=== PATIENT | female | born 1935 | race Caucasian/White ===

== ENCOUNTER 2020-02-06 16:09 | Emergency (ER) | payer OTHER, MEDICAID, SELFPAY ==
[2020-02-06 17:02] VITALS: BP 115/69; PULSE 87; RESP 16; TEMP 36.1; O2SAT 97; BMI 32.3
--- NOTE | 2020-02-06 21:47 | ED.BACK ---
HPI - Back Pain/Injury General Chief Complaint: Back Pain/Injury Stated Complaint: BACK PAIN Time Seen by Provider: 02/06/20 22:58 Source: patient, family (Daughter) and RN notes reviewed Mode of arrival: wheelchair Limitations: no limitations History of Present Illness HPI Narrative: Patient presents to ED for chronic back pain exacerbation. Patient states back pain for 4 days. Patient denies any recent trauma. Patient states no urinary or bowel incontinence. Patient states no fever or chills. MD elicited complaint: back pain Related Data Previous Rx's Medication Instructions Recorded oxycodone-acetaminophen [Percocet] 1 tab PO TID PRN #9 tab 02/07/20 Allergies Allergy/AdvReac Type Severity Reaction Status Date / Time No Known Allergies Allergy Unverified 10/26/19 19:11 [No Known Allergies*] Review of Systems Review of Systems: Back pain Yes all other systems are reviewed and are negative Constitutional: Constitutional: Reports as per HPI and Reports no additional constitutional complaints Eyes: Eyes: Reports as per HPI and Reports no additional eye complaints ENT: Reports system reviewed and no additional complaints, except as documented and Reports as per HPI Cardiovascular: Cardiovascular: Reports as per HPI and Reports no additional cardiovascular complaints Respiratory: Respiratory: Reports as per HPI and Reports no additional respiratory complaints Gastrointestinal: Gastrointestinal: Reports as per HPI and Reports no additional gastrointestinal complaints Genitourinary: Genitourinary: Reports no additional female genitourinary complaints and Reports as per HPI Musculoskeletal: Musculoskeletal: Reports no additional musculoskeletal complaints and Reports as per HPI Comments: Back pain Neurologic: Reports system reviewed and no additional complaints, except as documented and Reports as per HPI Psychiatric: Psychiatric: Reports no additional psychiatric complaints and Reports as per HPI [facility] Past Medical History Medical History (Updated 02/07/20 @ 02:44 by SANJEEV Hanna) Arthritis Dementia Hypertension Osteoporosis Social History Social History Alcohol intake: never Smoking Status: Never smoker Use of substances other than those prescribed or required for medical reasons: No Advance Directives: No Advance Directives Information Provided: Yes Physical Exam Vital Signs: Vital Signs: Last Vital Signs Temp 97.7 F 02/07/20 01:26 Pulse 72 02/07/20 01:26 Resp 16 02/07/20 01:26 BP 147/73 H 02/07/20 01:26 Pulse Ox 95 02/07/20 01:26 Body Mass Index 32.3 Const: General: cooperative, healthy appearing, comfortable, no acute distress, well developed, alert, awake and acute distress Orientation/consciousness: patient oriented x3 HENMT: Head: Yes normal to inspection and Yes No palpable skull fracture present Eyes: General: appearance normal, both eyes and all related structures Neck: Neck: Yes normal visual inspection and Yes full ROM Chest: Chest palpation & inspection: normal inspection of the chest and normal palpation of entire chest wall Resp: Effort & Inspection: normal respiratory effort, able to speak in complete sentences and uses accessory muscles Cardio: Jugular venous distension: no JVD Heart sounds: S1 normal heart sound present and S2 normal heart sound present GI: Inspection: Yes normal to inspection and No abdominal wall ecchymosis Palpation (GI): Soft to palpation, not firm, nontender, no guarding and not rigid : General: Yes no CVA tenderness Back/Spine/Pelvis: Back: no CVA tenderness and back tenderness (Positive for thoracic and lumbar spine tenderness on palpation) Skin: General skin exam: no rashes or lesions noted and elasticity normal Neuro: General: patient oriented x3, gait normal and CN's II-XI intact bilaterally Cranial nerves: Yes CN's II-XII intact bilaterally Extrem: General: Yes normal to inspection and Yes full ROM Psych: Appearance: grossly normal, well kempt and not disheveled Course Course Course Narrative: Patient will be given pain medication and imaging imaging done. Daughter states at baseline patient has dementia, is hard of hearing, and has low cognitive abilities. Reevaluation(s) Reevaluation #1: CT scan shows arthritic changes. Patient's pain did not improve after receiving oxycodone ,Toradol, Flexeril. Patient most likely will be a case management and physical therapy in the morning. Patient waiting for urinalysis. Time: 02:13 Reevaluation #2: Rectal exam was done and patient has good muscle tone. Patient able to move her lower extremities. But patient still in pain and not able to get up and walk. not suspecting chord compression Plan is for Case Management and physical exam to be done in the morning with physical therapy. Daughter was informed of this. Daughter name is amarilis Alston. Daughter states she does not want her mother to go to short-term rehab or be evaluated by Case Management or PT. through setup operator, daughter was informed if she takes patient it would be against medical advice and she accepted the risk of taking patient home. Daughter states patient usually walks at home, she was informed patient to be evaluated by physical therapy is necessary. She still refused patient to stay in the hospital for case management and physical therapy. Discharge papers being prepared. Amarilis Alston will come and pick up and delivery driver patient Time: 02:41 MDM - Back Pain/Injury MDM Narrative Medical decision making narrative: Chronic back pain exacerbation Lab Data Result diagrams: 02/07/20 00:48 02/07/20 00:48 Labs: Lab Results 02/07/20 02/07/20 02/07/20 Range/Units 00:48 00:48 02:05 WBC 5.3 (4.8-10.8) X10*3/uL RBC 4.43 (4.20-5.50) X10*6/uL Hgb 13.6 (12.0-16.0) g/dl Hct 39.9 (37-47) % MCV 90.1 (80-98) fL MCH 30.7 (27.0-33.0) pg MCHC 34.1 (31.0-35.0) g/dl RDW 12.2 (11.0-16.0) % Plt Count 337 (160-400) X10*3/uL MPV 10.2 (9.4-12.3) fL Immature Gran % (Auto) 0.4 (0.0-0.4) % Neut % (Auto) 68.6 (45-73) % Lymph % (Auto) 20.6 (20-40) % [place] % (Auto) 9.4 (2-11) % Eos % (Auto) 0.6 (0-4) % Baso % (Auto) 0.4 (0-2) % Lymph # (Auto) 1.1 L (1.2-4.9) X10*3/uL [place] # (Auto) 0.5 (0.1-1.2) X10*3/uL Eos # (Auto) 0.0 (0.0-0.4) X10*3/uL Baso # (Auto) 0.0 (0.0-0.2) X10*3/uL Abs Immat Gran (auto) 0.02 (0.00-0.03) X10*3/uL Absolute Neuts (auto) 3.7 (2.0-8.3) X10*3/uL Absolute Nucleated RBC 0.000 (0.0-0.012) X10*3/uL Nucleated RBC % (auto) 0.0 (0.0-0.2) /100WBC Sodium 140 (135-145) mmol/L Potassium 4.3 (3.3-5.1) mmol/l Chloride 101 (96-108) mmol/L Carbon Dioxide 27 (22-29) mmol/L Anion Gap 16 (12-20) BUN 16 (9-16) mg/dL Creatinine 1.25 (0.5-1.4) mg/dL Estim Creat Clear Calc 29.6 Estimated GFR 41 Random Glucose 105 (60-115) mg/dL Calcium 9.7 (8.4-10.2) mg/dL Total Bilirubin 0.7 (0.0-1.0) mg/dL Direct Bilirubin 0.3 (0.0-0.5) mg/dL AST 21 (5-31) U/L ALT 11 (0-31) U/L Alkaline Phosphatase 144 H (39-117) U/L Total Protein 8.2 H (6.5-8.0) g/dL Albumin 4.2 (3.5-5.0) g/dL Urine Color YELLOW Urine Appearance HAZY Urine pH 5.5 (5.0-8.0) Ur Specific [place] >= 1.030 H (1.005-1.025) Urine Protein 1+ H (NEG-TRACE) MG/DL Urine Glucose (UA) NEG (NEG) MG/DL Urine Ketones NEG (NEG) MG/DL Urine Blood NEG (NEG) Urine Nitrite NEG (NEG) Ur Leukocyte Esterase NEG (NEG) Discharge Plan Discharge Clinical Impression: Lumbar radiculopathy Patient Disposition: Left Against Medical Advice Instructions: Lumbar Radiculopathy (ED) Additional Instructions: Please bring patient back to the ED immediately for urinary/bowel incontinence, inability to move lower extremities, fever, chills, or any other concerning symptoms. Please follow-up with PCP. Chronic back pain exacerbation Prescriptions: New oxycodone-acetaminophen [Percocet] 5-325 mg tablet 1 tab PO TID PRN (Reason: pain) Qty: 9 RF: 0 Stand Alone Forms: Against Medical Advice Print Language: Welsh
[2020-02-06 21:54] VITALS: BP 156/78; PULSE 70; RESP 18; O2SAT 96
[2020-02-06] MEDS: Ketorolac Tromethamine 30 MG/ML VIAL IM (22:34)
[2020-02-06 22:50] VITALS: BP 163/75; PULSE 74; RESP 18; TEMP 36.6; O2SAT 95
[2020-02-06] MEDS: Cyclobenzaprine HCl 10 MG TABLET PO (23:15)
[2020-02-06 23:28] VITALS: BP 143/70; PULSE 72; RESP 18; TEMP 36.7; O2SAT 96
--- NOTE | 2020-02-07 | CT_ITS ---
EXAMINATION: CT ABDOMEN AND PELVIS WITHOUT CONTRAST CLINICAL INFORMATION: Back pain. Question arthritis. Question kidney stones. COMPARISON: CT from 12/02/2017. TECHNIQUE: Multidetector volumetric imaging was performed from the superior aspect of the liver through the pubic symphysis. Sagittal and coronal reformatted images were obtained on the technologist's workstation. This CT examination was performed using dose optimization techniques as appropriate, variously including the following: *Automated exposure control *Adjustment of mA and/or kV according to patient size (this includes techniques or standardized protocols for targeted exams where dose is matched to indication/reason for exam; i.e. extremities or head) *Use of iterative reconstruction technique DLP: 710 mGy-cm FINDINGS: LUNG BASES: Basilar pleural thickening and atelectasis. The heart is enlarged. LIVER, GALLBLADDER, AND BILIARY TREE: The liver is normal in size, shape, and attenuation. No focal hepatic lesion or intrahepatic biliary ductal dilatation is present. Cholecystectomy. Persistent dilatation of the common bile duct. No ductal filling defects seen. PANCREAS: Unremarkable. SPLEEN: Unremarkable. ADRENAL GLANDS: Unremarkable. KIDNEYS AND URETERS: The kidneys are normal in size, shape, and attenuation. No hydronephrosis, hydroureter, or calculi seen. No perinephric stranding. Right midpole renal cyst is unchanged. BLADDER: Normally distended with circumferential wall thickening. This is similar to prior. GASTROINTESTINAL TRACT: The stomach is unremarkable. The small bowel is normal in caliber. There is no obstruction. Partial colectomy.There is a left lower quadrant colostomy. 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 This is not obstructing. No free air or free fluid. ABDOMINAL WALL: Left lower quadrant colostomy with prominent parastomal hernia. This is unchanged. LYMPH NODES: Normal. VASCULAR: Normal caliber aorta with mild atherosclerotic calcification. PELVIC VISCERA: The uterus and adnexa are unremarkable. OSSEOUS STRUCTURES: No acute or suspicious osseous abnormality. Osteopenia. Degenerative changes throughout the spine. Chronic L5 vertebral body height loss. Prominent Schmorl's node at the inferior endplate of L1. Multilevel facet arthropathy. Degenerative changes of both hips. CT/CT abdomen pelvis wo con IMPRESSION: No acute finding in the abdomen or pelvis. No hydronephrosis or nephrolithiasis. Osteopenia. Chronic changes of the spine with prominent Schmorl's nodes. No acute abnormality of the spine. Multilevel facet arthropathy. 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 Chronic bladder wall thickening.
[2020-02-07] MEDS: oxyCODONE HCl Immed Release 5 MG TABLET PO (00:39)
[2020-02-07 00:55] LABS: MANUAL DIFF FLAG NO
[2020-02-07 00:56] LABS: Basophils Percent Auto 0.4 % (0-2); Eosinophils Percent Auto 0.6 % (0-4); Hematocrit 39.9 % (37-47); Hemoglobin 13.6 g/dl (12.0-16.0); Imm Gran Abs Auto 0.02 X10*3/uL (0.00-0.03); Imm Gran Pct Auto 0.4 % (0.0-0.4); Lymphocytes Absolute Auto 1.1 X10*3/uL (1.2-4.9); Lymphocytes Percent Auto 20.6 % (20-40); Mean Corpuscular HGB Conc 34.1 g/dl (31.0-35.0); Mean Corpuscular Hemoglobin 30.7 pg (27.0-33.0); Mean Corpuscular Volume 90.1 fL (80-98); Mean Platelet Volume 10.2 fL (9.4-12.3); Monocytes Absolute Auto 0.5 X10*3/uL (0.1-1.2); Monocytes Percent Auto 9.4 % (2-11); Neutrophils Absolute Auto 3.7 X10*3/uL (2.0-8.3); Neutrophils Percent Auto 68.6 % (45-73); Platelet Count 337 X10*3/uL (160-400); Red Blood Count 4.43 X10*6/uL (4.20-5.50); Red Cell Distribution Width 12.2 % (11.0-16.0); White Blood Count 5.3 X10*3/uL (4.8-10.8)
[2020-02-07 01:23] LABS: Alanine Aminotransferase 11 U/L (0-31); Albumin Level 4.2 g/dL (3.5-5.0); Alkaline Phosphatase 144 U/L (39-117); Anion Gap 16 (12-20); Aspartate Amino Transferase 21 U/L (5-31); Bilirubin Direct 0.3 mg/dL (0.0-0.5); Bilirubin Total 0.7 mg/dL (0.0-1.0); Blood Urea Nitrogen 16 mg/dL (9-16); Calcium 9.7 mg/dL (8.4-10.2); Carbon Dioxide 27 mmol/L (22-29); Chloride 101 mmol/L (96-108); Creatinine Clr Calc Pharmacy 29.6; Estimated Glomerular Filt Rate 41; Glucose Random 105 mg/dL (60-115); Potassium 4.3 mmol/l (3.3-5.1); Sodium 140 mmol/L (135-145); Total Protein 8.2 g/dL (6.5-8.0)
[2020-02-07 01:26] VITALS: BP 147/73; PULSE 72; RESP 16; TEMP 36.5; O2SAT 95
[2020-02-07 02:21] LABS: Glucose Urine UA NEG (NEG); Leukocyte Esterase Urine NEG (NEG); Nitrite Urine NEG (NEG); PH 5.5 (5.0-8.0); Specific Gravity - Urine >= 1.030 (1.005-1.025); Urine Blood NEG (NEG); Urine Ketones NEG (NEG); Urine Protein 1+ MG/DL (NEG-TRACE)
[2020-02-07 02:25] LABS: Appearance Urine HAZY; Color Urine YELLOW
[2020-02-07 03:29] LABS: RBC Urine 0 /HPF (0); Renal Epithelial Cells Urine 3+ /LPF; Squamous Epithelial Cell Urine TRACE /LPF; WBC Urine 0-2 /HPF (0-4)
[2020-02-07 03:30] LABS: Amorphous Sediment Urine 3+ /LPF; Uric Acid Crystals Urine TRACE /LPF
== END 2020-02-07 03:34 | disposition left against medical advice (07) ==
PROVIDERS: Physician Assistant; Emergency Provider Emergency Medicine; PCP Internal Medicine
DX: M54.16 Radiculopathy, lumbar region (principal); R10.9 Unspecified abdominal pain; I10 Essential (primary) hypertension; Z79.899 Other long term (current) drug therapy
CPT/HCPCS: 36415; 74176; 80053; 80076; 81001; 82248; 85025; 96372; 99284; J1885

== ENCOUNTER 2021-02-01 23:10 | Inpatient (IN) | payer OTHER, MEDICAID, SELFPAY ==
--- NOTE | ~2021-02-01 | XR_ITS ---
EXAMINATION: XR CHEST CLINICAL INFORMATION: Covid positive COMPARISON: 05/31/2018 TECHNIQUE: Frontal view of the chest was obtained. FINDINGS: The lungs are well expanded. Patchy opacities are seen in both mid to lower lungs. No effusion. No pneumothorax. The cardiomediastinal silhouette is unchanged, with a calcified aorta. Degenerative changes of the shoulders. Intra-articular body at the right inferior glenohumeral recess. XR/XR chest 1V IMPRESSION: Patchy opacities of both mid to lower lungs can be seen in the setting of Covid.
--- NOTE | ~2021-02-01 | XR_ITS ---
EXAMINATION: XR CHEST CLINICAL INFORMATION: Hypoxia COMPARISON: Chest radiographs 02/02/2021, 05/31/2018; CT abdomen 02/07/2020. TECHNIQUE: Portable upright AP view of the chest was obtained. FINDINGS: Patient is obliqued to the right. There is patchy bilateral lower zone airspace opacities, increased from 02/02/2021. The vascularity appears normal. There is no pneumothorax. No overt effusion. Bony structures are similar to prior study. XR/XR chest 1V IMPRESSION: Patchy bilateral lower zone airspace opacities increased from prior study 02/02/2021.
--- NOTE | 2021-02-01 23:47 | ED.AMS ---
HPI - Altered Mental Status General Chief Complaint: Altered Mental Status Stated Complaint: ams/ftt Time Seen by Provider: 02/01/21 23:47 Source: EMS Limitations: altered mental status History of Present Illness HPI narrative: patient history of dementia, type 2 diabetes, hypertension, coronary disease, colon cancer, andree stomal hernia came here for decreased oral intake and feeling weak and more confused for last 2 days. No fever no chills no cough other family members sick with a cold symptoms but no family member diagnosed with COVID, patient not vaccinated against COVID no fever no cough no vomiting or diarrhea patient had a colostomy bag for colon cancer patient demented but able to ambulate and eat today patient did not eat much patient is saturating 89% at room air on arrival Related Data Home Medications Medication Instructions Recorded Confirmed acetaminophen 650 mg 2 tab PO Q12H PRN 02/02/21 02/02/21 tablet,extended release (Pain Relief (acetaminophen)) amlodipine 5 mg tablet 1 tab PO DAILY 02/02/21 02/02/21 quetiapine 25 mg tablet 1 tab PO BEDTIME 02/02/21 02/02/21 Allergies Allergy/AdvReac Type Severity Reaction Status Date / Time No Known Allergies Allergy Verified 02/02/21 00:12 [No Known Allergies*] Review of Systems Review of Systems: Yes all other systems are reviewed and are negative PMFSH Past Medical History Medical History (Updated 02/02/21 @ 05:04 by Chidi Roche MD) Arthritis Dementia Hypertension Osteoporosis S/p nephrectomy Surgical History (Updated 02/02/21 @ 00:07 by Chidi Roche MD) S/P cholecystectomy S/P colon resection Social History Social History Alcohol intake: never Use of substances other than those prescribed or required for medical reasons: No Advance Directives: No Advance Directives Information Provided: Yes Physical Exam Vital Signs: Vital Signs: Last Vital Signs Temp 98.6 F 02/02/21 03:23 Pulse 76 02/02/21 03:23 Resp 22 H 02/02/21 03:23 BP 108/58 L 02/02/21 03:23 Pulse Ox 98 02/02/21 03:23 Oxygen Flow Rate 2 02/01/21 23:52 BMI result Body Mass Index 29.2 Appearance: Alert. Oriented X1. No acute distress. Eyes: PERRL. mild pallor ENT: Pharynx normal. Oral Mucosa moist Neck: Normal inspection. Neck supple. CVS: Normal heart rate and rhythm. Pulses normal. Respiratory: No respiratory distress. Equal air entry bilateral, no wheezing/rales/rhonchi Abdomen: Soft and nontender. colostomy bag in place Bowel sounds are present, no mass palpable, Skin: Skin warm and dry. Normal skin color. Normal skin turgor. Extremities: No lower extremity edema. No calf tenderness Neuro: Oriented X 3. No motor deficit. MDM - Altered Mental Status MDM Narrative Medical decision making narrative: patient COVID-19 positive 89% at room air when she came labs showed significant dehydration with sodium of 155 creatinine of 1.72 will admit patient for IV hydration. Chest x-ray showed significant infiltrates bilaterally will start on IV antibiotic prophylactically per hospitalist patient has elevated lactic acid 2.4 a procalcitonin 5.91 suggestive of possible bacterial infection with dehydration patient is slightly elevated high sensitive troponin 62 no acute ischemic EKG changes no chest pain will follow hospitalist aware Lab Data Attestation: I reviewed the patient's lab results. Result diagrams: 02/02/21 04:27 02/02/21 04:27 Labs: Lab Results 02/01/21 02/02/21 02/02/21 Range/Units 23:53 00:18 00:24 WBC 13.8 H (4.8-10.8) X10*3/uL RBC 4.85 (4.20-5.50) X10*6/uL Hgb 14.6 (12.0-16.0) g/dl Hct 44.1 (37.0-47.0) % MCV 90.9 (80.0-98.0) fL MCH 30.1 (27.0-33.0) pg MCHC 33.1 (31.0-35.0) g/dl RDW 13.9 (11.0-16.0) % Plt Count 193 (160-400) X10*3/uL MPV 12.4 H (9.4-12.3) fL Immature Gran % (Auto) 0.8 H (0.0-0.4) % Neut % (Auto) 92.6 H (45-73) % Lymph % (Auto) 3.5 L (20-40) % [place] % (Auto) 3.0 (2-11) % Eos % (Auto) 0.0 (0-4) % Baso % (Auto) 0.1 (0-2) % Lymph # (Auto) 0.5 L (1.2-4.9) X10*3/uL [place] # (Auto) 0.4 (0.1-1.2) X10*3/uL Eos # (Auto) 0.0 (0.0-0.4) X10*3/uL Baso # (Auto) 0.0 (0.0-0.2) X10*3/uL Abs Immat Gran (auto) 0.11 H (0.00-0.03) X10*3/uL Absolute Neuts (auto) 12.8 H (2.0-8.3) x10*3/uL Absolute Nucleated RBC 0.020 H (0.0-0.012) X10*3/uL Nucleated RBC % (auto) 0.1 (0.0-0.2) /100WBC Smear Tech's Comments VERIFIED Sodium (135-145) mmol/L Potassium (3.3-5.1) mmol/L Chloride (96-108) mmol/L Carbon Dioxide (22-29) mmol/L Anion Gap (12-20) BUN (9-16) mg/dL Creatinine (0.5-1.4) mg/dL Estim Creat Clear Calc Estimated GFR POC Glucose 216 H (60-115) mg/dL Random Glucose (60-115) mg/dL Lactic Acid (0.5-2.0) mmol/L Calcium (8.4-10.2) mg/dL Total Bilirubin (0.0-1.0) mg/dL AST (5-31) U/L ALT (0-31) U/L Alkaline Phosphatase (39-117) U/L Troponin I High Sens (<3.5-17.0) ng/L Total Protein (6.5-8.0) g/dL Albumin (3.5-5.0) g/dL Procalcitonin ng/mL Urine Color Urine Appearance Urine pH (5.0-8.0) Ur Specific [place] (1.005-1.025) Urine Protein (NEG-TRACE) MG/DL Urine Glucose (UA) (NEG) MG/DL Urine Ketones (NEG) MG/DL Urine Blood (NEG) Urine Nitrite (NEG) Ur Leukocyte Esterase (NEG) Urine RBC (0) /HPF Urine WBC (0-4) /HPF Ur Squamous Epith Cells /LPF Amorphous Sediment /LPF Urine Bacteria /LPF Hyaline Casts /LPF Granular Casts /LPF Urine Mucus /LPF COVID-19 (JAGUAR) Positive A (Negative) COVID-19 Clin Com See Note 02/02/21 02/02/21 02/02/21 Range/Units 00:24 00:24 01:04 WBC (4.8-10.8) X10*3/uL RBC (4.20-5.50) X10*6/uL Hgb (12.0-16.0) g/dl Hct (37.0-47.0) % MCV (80.0-98.0) fL MCH (27.0-33.0) pg MCHC (31.0-35.0) g/dl RDW (11.0-16.0) % Plt Count (160-400) X10*3/uL MPV (9.4-12.3) fL Immature Gran % (Auto) (0.0-0.4) % Neut % (Auto) (45-73) % Lymph % (Auto) (20-40) % [place] % (Auto) (2-11) % Eos % (Auto) (0-4) % Baso % (Auto) (0-2) % Lymph # (Auto) (1.2-4.9) X10*3/uL [place] # (Auto) (0.1-1.2) X10*3/uL Eos # (Auto) (0.0-0.4) X10*3/uL Baso # (Auto) (0.0-0.2) X10*3/uL Abs Immat Gran (auto) (0.00-0.03) X10*3/uL Absolute Neuts (auto) (2.0-8.3) x10*3/uL Absolute Nucleated RBC (0.0-0.012) X10*3/uL Nucleated RBC % (auto) (0.0-0.2) /100WBC Smear Tech's Comments Sodium 155 H (135-145) mmol/L Potassium 4.6 (3.3-5.1) mmol/L Chloride 119 H (96-108) mmol/L Carbon Dioxide 19 L (22-29) mmol/L Anion Gap 22 H (12-20) BUN 25 H (9-16) mg/dL Creatinine 1.72 H (0.5-1.4) mg/dL Estim Creat Clear Calc 19.1 Estimated GFR 28 POC Glucose (60-115) mg/dL Random Glucose 207 H (60-115) mg/dL Lactic Acid (0.5-2.0) mmol/L Calcium 9.8 (8.4-10.2) mg/dL Total Bilirubin 0.8 (0.0-1.0) mg/dL AST 48 H D (5-31) U/L ALT 17 (0-31) U/L Alkaline Phosphatase 118 H (39-117) U/L Troponin I High Sens 62.0 H* (<3.5-17.0) ng/L Total Protein 9.0 H (6.5-8.0) g/dL Albumin 4.1 (3.5-5.0) g/dL Procalcitonin ng/mL Urine Color YELLOW Urine Appearance HAZY Urine pH 6.0 (5.0-8.0) Ur Specific [place] 1.025 (1.005-1.025) Urine Protein 3+ H (NEG-TRACE) MG/DL Urine Glucose (UA) NEG (NEG) MG/DL Urine Ketones NEG (NEG) MG/DL Urine Blood 1+ H (NEG) Urine Nitrite NEG (NEG) Ur Leukocyte Esterase NEG (NEG) Urine RBC 0-2 (0) /HPF Urine WBC 0-2 (0-4) /HPF Ur Squamous Epith Cells NONE /LPF Amorphous Sediment 1+ /LPF Urine Bacteria NONE /LPF Hyaline Casts 1-4 /LPF Granular Casts 0-2 /LPF Urine Mucus 2+ /LPF COVID-19 (JAGUAR) (Negative) COVID-19 Clin Com 02/02/21 02/02/21 Range/Units 02:09 02:09 WBC (4.8-10.8) X10*3/uL RBC (4.20-5.50) X10*6/uL Hgb (12.0-16.0) g/dl Hct (37.0-47.0) % MCV (80.0-98.0) fL MCH (27.0-33.0) pg MCHC (31.0-35.0) g/dl RDW (11.0-16.0) % Plt Count (160-400) X10*3/uL MPV (9.4-12.3) fL Immature Gran % (Auto) (0.0-0.4) % Neut % (Auto) (45-73) % Lymph % (Auto) (20-40) % [place] % (Auto) (2-11) % Eos % (Auto) (0-4) % Baso % (Auto) (0-2) % Lymph # (Auto) (1.2-4.9) X10*3/uL [place] # (Auto) (0.1-1.2) X10*3/uL Eos # (Auto) (0.0-0.4) X10*3/uL Baso # (Auto) (0.0-0.2) X10*3/uL Abs Immat Gran (auto) (0.00-0.03) X10*3/uL Absolute Neuts (auto) (2.0-8.3) x10*3/uL Absolute Nucleated RBC (0.0-0.012) X10*3/uL Nucleated RBC % (auto) (0.0-0.2) /100WBC Smear Tech's Comments Sodium (135-145) mmol/L Potassium (3.3-5.1) mmol/L Chloride (96-108) mmol/L Carbon Dioxide (22-29) mmol/L Anion Gap (12-20) BUN (9-16) mg/dL Creatinine (0.5-1.4) mg/dL Estim Creat Clear Calc Estimated GFR POC Glucose (60-115) mg/dL Random Glucose (60-115) mg/dL Lactic Acid 2.4 H* (0.5-2.0) mmol/L Calcium (8.4-10.2) mg/dL Total Bilirubin (0.0-1.0) mg/dL AST (5-31) U/L ALT (0-31) U/L Alkaline Phosphatase (39-117) U/L Troponin I High Sens (<3.5-17.0) ng/L Total Protein (6.5-8.0) g/dL Albumin (3.5-5.0) g/dL Procalcitonin 5.91 ng/mL Urine Color Urine Appearance Urine pH (5.0-8.0) Ur Specific [place] (1.005-1.025) Urine Protein (NEG-TRACE) MG/DL Urine Glucose (UA) (NEG) MG/DL Urine Ketones (NEG) MG/DL Urine Blood (NEG) Urine Nitrite (NEG) Ur Leukocyte Esterase (NEG) Urine RBC (0) /HPF Urine WBC (0-4) /HPF Ur Squamous Epith Cells /LPF Amorphous Sediment /LPF Urine Bacteria /LPF Hyaline Casts /LPF Granular Casts /LPF Urine Mucus /LPF COVID-19 (JAGUAR) (Negative) COVID-19 Clin Com ECG Data ECG #1: Attestation: I personally reviewed and interpreted this ECG as follows: Interpretation: Normal sinus rhythm heart rate 92 beats per minute with PACs slight ST depression in anterior leads no acute ST elevation Discharge Plan Discharge Clinical Impression: Acute hypoxemic respiratory failure due to COVID-19, Hypernatremia, XAVIER (acute kidney injury), Non-STEMI (non-ST elevated myocardial infarction) Patient Disposition: Admitted As Inpatient
[2021-02-01 23:52] VITALS: BP 103/57; PULSE 98; RESP 18; TEMP 36.8; O2SAT 97; BMI 29.2
[2021-02-02] VITALS (7 sets, daily range): BP systolic 95–162; BP diastolic 56–81; PULSE 64–90; RESP 22–32; TEMP 36.4–37; O2SAT 97–100
--- NOTE | 2021-02-02 | ECG_ITS ---
Test Reason : altered mental Blood Pressure : / mmHG Vent. Rate : 098 BPM Atrial Rate : 098 BPM P-R Int : 118 ms QRS Dur : 070 ms QT Int : 376 ms P-R-T Axes : 048 027 080 degrees QTc Int : 480 ms Sinus rhythm with Premature atrial complexes Posterior infarct , possibly acute ACUTE MO / STEMI Abnormal ECG When compared with ECG of 31-MAY-2018 16:11, Premature ventricular complexes are no longer Present Premature atrial complexes are now Present ST more depressed Anterior leads Nonspecific T wave abnormality no longer evident in Inferior leads Referred By: Chidi Roche Electronically Signed By:Blanco Lambert
--- NOTE | 2021-02-02 | ECG_ITS ---
Test Reason : ALTERED MENTAL Blood Pressure : / mmHG Vent. Rate : 092 BPM Atrial Rate : 092 BPM P-R Int : 124 ms QRS Dur : 082 ms QT Int : 388 ms P-R-T Axes : 050 026 072 degrees QTc Int : 479 ms Sinus rhythm with Premature atrial complexes ST & T wave abnormality, consider anterior ischemia Prolonged QT Abnormal ECG When compared with ECG of 31-MAY-2018 16:11, Premature ventricular complexes are no longer Present Premature atrial complexes are now Present Referred By: Chidi Roche Electronically Signed By:JAZ WANG
[2021-02-02 00:15] LABS: Glucose, Whole Blood 216 mg/dL (60-115)
[2021-02-02 00:33] LABS: Basophils Percent Auto 0.1 % (0-2); Hematocrit 44.1 % (37.0-47.0); Hemoglobin 14.6 g/dl (12.0-16.0); Imm Gran Abs Auto 0.11 X10*3/uL (0.00-0.03); Imm Gran Pct Auto 0.8 % (0.0-0.4); Lymphocytes Absolute Auto 0.5 X10*3/uL (1.2-4.9); Lymphocytes Percent Auto 3.5 % (20-40); MANUAL DIFF FLAG SCAN; Mean Corpuscular HGB Conc 33.1 g/dl (31.0-35.0); Mean Corpuscular Hemoglobin 30.1 pg (27.0-33.0); Mean Corpuscular Volume 90.9 fL (80.0-98.0); Mean Platelet Volume 12.4 fL (9.4-12.3); Monocytes Absolute Auto 0.4 X10*3/uL (0.1-1.2); NRBC Pct Auto 0.1 /100WBC (0.0-0.2); Neutrophils Absolute Auto 12.8 x10*3/uL (2.0-8.3); Neutrophils Percent Auto 92.6 % (45-73); Platelet Count 193 X10*3/uL (160-400); Red Blood Count 4.85 X10*6/uL (4.20-5.50); Red Cell Distribution Width 13.9 % (11.0-16.0); SCAN SMEAR FLAG 1; White Blood Count 13.8 X10*3/uL (4.8-10.8)
[2021-02-02] MEDS: 0.9 % Sodium Chloride 1,000 ML 999 ML IVCONT (00:37)
[2021-02-02 00:43] LABS: IDNOW Serial# 9DD0AD1C
[2021-02-02 00:44] LABS: COVID-19 Test Positive (Negative)
[2021-02-02 00:52] LABS: SLIDE REVIEW VERIFIED
[2021-02-02 00:56] LABS: Alanine Aminotransferase 17 U/L (0-31); Albumin Level 4.1 g/dL (3.5-5.0); Alkaline Phosphatase 118 U/L (39-117); Anion Gap 22 (12-20); Aspartate Amino Transferase 48 U/L (5-31); Bilirubin Total 0.8 mg/dL (0.0-1.0); Blood Urea Nitrogen 25 mg/dL (9-16); Calcium 9.8 mg/dL (8.4-10.2); Carbon Dioxide 19 mmol/L (22-29); Chloride 119 mmol/L (96-108); Creatinine Clr Calc Pharmacy 19.1; Estimated Glomerular Filt Rate 28; Glucose Random 207 mg/dL (60-115); Potassium 4.6 mmol/L (3.3-5.1); Sodium 155 mmol/L (135-145)
[2021-02-02 01:11] LABS: Appearance Urine HAZY; Color Urine YELLOW; Glucose Urine UA NEG (NEG); Leukocyte Esterase Urine NEG (NEG); Nitrite Urine NEG (NEG); Specific Gravity - Urine 1.025 (1.005-1.025); UACC Culture Trigger NO; Urine Blood 1+ (NEG); Urine Ketones NEG (NEG); Urine Protein 3+ MG/DL (NEG-TRACE)
[2021-02-02 01:18] LABS: Amorphous Sediment Urine 1+ /LPF; Granular Casts Urine 0-2 /LPF; Mucus Urine 2+ /LPF; RBC Urine 0-2 /HPF (0); WBC Urine 0-2 /HPF (0-4)
[2021-02-02] MEDS: Acetaminophen Oral Liquid 650 MG/20.3 ML SOLUTION PO (02:13)
[2021-02-02] MEDS: cefTRIAXone sodium 1 GM in 0.9 % Sodium Chloride 50 ML IV ×2 (02:13→22:40)
--- NOTE | 2021-02-02 02:23 | PM.IMHP ---
History of Present Illness Date of Service: 02/02/21 Chief Complaint: Generalized weakness 85-year-old female with a past medical history of hypertension, remote history of colon cancer status post resection-subsequent colostomy bag; dementia, arthritis, osteoporosis; presented to the hospital today with a chief complaint of generalized weakness. Most of the history obtained from the patient's daughter; reported that over the past 2-3 days she has been not feeling well, generally weak, not eating and drinking; today noted to be more confused and brought into the hospital for further evaluation. Denies patient complaining of any chest pain palpitations lightheadedness or dizziness. Denies any numbness tingling or focal weakness. Review of all other systems is negative except mentioned above ER course: Per ER team patient on presentation noted to be saturating 89% on room air; placed on supplemental oxygen; COVID-19 came back positive; chest x-ray showed patchy infiltrates consistent COVID-19; Also noted to have hyponatremia to 155, XAVIER to 1.7; given IV fluids. Admitted to the hospital for further management. [facility] Medical History (Updated 02/02/21 @ 03:17 by Chidi Roche MD) Arthritis Dementia Hypertension Osteoporosis S/p nephrectomy Pertinent family history: Reviewed Surgical History (Updated 02/02/21 @ 00:07 by Chidi Roche MD) S/P cholecystectomy S/P colon resection Social History Alcohol intake: never Use of substances other than those prescribed or required for medical reasons: No Advance Directives: No Advance Directives Information Provided: Yes Meds Allergies Allergy/AdvReac Type Severity Reaction Status Date / Time No Known Allergies Allergy Verified 02/02/21 00:12 [No Known Allergies*] Active Medications: Current Medications Acetaminophen (Acetaminophen 325 Mg Tablet) 650 mg PO Q6H PRN PRN Reason: Pain, Mild (Pain Scale 1-3) Dexamethasone Sodium Phosphate (Dexamethasone Sod Phosphate 4 Mg/Ml Vial) 6 mg IVPUSH DAILY TANNA Enoxaparin Sodium (Enoxaparin Sodium 40 Mg/0.4 Ml Syringe) 40 mg SUBCUT Q24H TANNA Famotidine (Famotidine/Pf 20 Mg/2 Ml Vial) 20 mg IVPUSH BID TANNA Azithromycin 500 mg/ Sodium (Chloride) 250 mls @ 125 mls/hr IV ONCE ONE Stop: 02/02/21 03:26 Ceftriaxone Sodium 1 gm/ (Sodium Chloride) 50 mls @ 100 mls/hr IV Q24H TANNA Azithromycin 500 mg/ Sodium (Chloride) 250 mls @ 125 mls/hr IV Q24H [facility] Dextrose (D5w) 1,000 mls @ 50 mls/hr IVCONT .Q20H [facility] Melatonin (Melatonin 3 Mg Tablet) 6 mg PO BEDTIME PRN PRN Reason: Insomnia Morphine Sulfate (Morphine Sulfate 4 Mg/Ml Cartridge) 1 mg IVPUSH Q4H PRN; Protocol PRN Reason: Pain, SOB Senna (Sennosides 8.6 Mg Tablet) 17.2 mg PO BEDTIME PRN PRN Reason: Constipation Sodium Chloride (0.9 % Sodium Chloride Flush 3 Ml Syringe) 3 ml IVFLUSH QSHIFT [facility] Home Medications Medication Instructions Recorded Confirmed Last Taken Type acetaminophen 650 mg 2 tab PO Q12H PRN 02/02/21 02/02/21 Unknown History tablet,extended release (Pain Relief (acetaminophen)) amlodipine 5 mg tablet 1 tab PO DAILY 02/02/21 02/02/21 Unknown History quetiapine 25 mg tablet 1 tab PO BEDTIME 02/02/21 02/02/21 Unknown History Physical Exam Vital Signs and Narrative: Vital Signs: Last Vital Signs Temp 98.3 F 02/01/21 23:52 Pulse 77 02/02/21 02:20 Resp 29 H 02/02/21 02:20 BP 117/60 02/02/21 02:20 Pulse Ox 97 02/02/21 02:20 Oxygen Flow Rate 2 02/01/21 23:52 BMI result Body Mass Index 29.2 Gen: Appears be in no acute distress; on supplemental oxygen. Speaks in full sentences. Thin built HEENT: NCAT, Moist mucosa. Pulmonary: Coarse breath sounds CVS: Normal S1-S2 Abdomen: BS+, Soft, Nontender Extremities: Warm well perfused Neuro: Alert and awake. Results Labs CBC and Chem 7: 02/02/21 00:24 02/02/21 00:24 Labs: Laboratory Results - last 24 hr 02/01/21 02/02/21 02/02/21 23:53 00:18 00:24 MCV 90.9 MCH 30.1 MCHC 33.1 RDW 13.9 Plt Count 193 MPV 12.4 H Immature Gran % (Auto) 0.8 H Neut % (Auto) 92.6 H Lymph % (Auto) 3.5 L [place] % (Auto) 3.0 Eos % (Auto) 0.0 Baso % (Auto) 0.1 Lymph # (Auto) 0.5 L [place] # (Auto) 0.4 Eos # (Auto) 0.0 Baso # (Auto) 0.0 Abs Immat Gran (auto) 0.11 H Absolute Neuts (auto) 12.8 H Absolute Nucleated RBC 0.020 H Nucleated RBC % (auto) 0.1 Smear Tech's Comments VERIFIED Anion Gap Estim Creat Clear Calc Estimated GFR POC Glucose 216 H Random Glucose Calcium Total Bilirubin AST ALT Alkaline Phosphatase Total Protein Albumin Urine Color Urine Appearance Urine pH Ur Specific [place] Urine Protein Urine Glucose (UA) Urine Ketones Urine Blood Urine Nitrite Ur Leukocyte Esterase Urine RBC Urine WBC Ur Squamous Epith Cells Amorphous Sediment Urine Bacteria Hyaline Casts Granular Casts Urine Mucus COVID-19 (JAGUAR) Positive A COVID-19 Clin Com See Note 02/02/21 02/02/21 00:24 01:04 MCV MCH MCHC RDW Plt Count MPV Immature Gran % (Auto) Neut % (Auto) Lymph % (Auto) [place] % (Auto) Eos % (Auto) Baso % (Auto) Lymph # (Auto) [place] # (Auto) Eos # (Auto) Baso # (Auto) Abs Immat Gran (auto) Absolute Neuts (auto) Absolute Nucleated RBC Nucleated RBC % (auto) Smear Tech's Comments Anion Gap 22 H Estim Creat Clear Calc 19.1 Estimated GFR 28 POC Glucose Random Glucose 207 H Calcium 9.8 Total Bilirubin 0.8 AST 48 H D ALT 17 Alkaline Phosphatase 118 H Total Protein 9.0 H Albumin 4.1 Urine Color YELLOW Urine Appearance HAZY Urine pH 6.0 Ur Specific [place] 1.025 Urine Protein 3+ H Urine Glucose (UA) NEG Urine Ketones NEG Urine Blood 1+ H Urine Nitrite NEG Ur Leukocyte Esterase NEG Urine RBC 0-2 Urine WBC 0-2 Ur Squamous Epith Cells NONE Amorphous Sediment 1+ Urine Bacteria NONE Hyaline Casts 1-4 Granular Casts 0-2 Urine Mucus 2+ COVID-19 (JAGUAR) COVID-19 Clin Com Imaging Radiologist's Impressions: Impressions Chest X-Ray 02/02/21 01:15 IMPRESSION: Patchy opacities of both mid to lower lungs can be seen in the setting of Covid. Assessment and Plan (1) Pneumonia due to COVID-19 virus: Status: Acute (2) Hypoxia: Status: Acute (3) Colostomy in place: Status: Acute (4) Hypernatremia: Status: Acute (5) XAVIER (acute kidney injury): Status: Acute (6) Dementia: Status: Acute 85-year-old female with a past medical history of hypertension, remote history of colon cancer status post resection-subsequent colostomy bag; dementia, arthritis, osteoporosis; presented to the hospital today with a chief complaint of generalized weakness. Noted to have COVID-19 pneumonia. Admitted for further management. Confusion: Likely toxic metabolic encephalopathy. Patient has baseline dementia. Continue to monitor. Hypoxia: In the setting of COVID-19 pneumonia. On supplemental oxygen. Currently not in respiratory distress. Supportive care. High troponin: trop 62; repeat pending. EKG non specific ST changes. Echocardiogram. COVID-19 pneumonia: Continue ceftriaxone and azithromycin empirically. Continue Decadron 6 mg daily. Id consult for further recommendations. XAVIER: Likely prerenal. In the setting of poor oral intake over the past 3-4 days. Avoid nephrotoxins. History of hypertension: Patient's blood pressure currently on the soft side. Will hold home antihypertensives. Hypernatremia: Patient's Na:155 on presentation. Started on D5 water. Repeat sodium levels in the morning. Nephrology consult. DVT prophylaxis: Lovenox GI prophylaxis: Pepcid Code status: Full code-confirmed with the patient's daughter Quality Stroke Does the patient have a stroke diagnosis?: No VTE Prior VTE?: No VTE Risk Level:: Medical - moderate - high VTE Device Contraindication: Treatment Not Indicated VTE Drug Contraindication: N/A - Med Ordered
[2021-02-02 02:32] LABS: Lactic Acid 2.4 mmol/L (0.5-2.0)
[2021-02-02 03:07] LABS: Procalcitonin 5.91 ng/mL
[2021-02-02] MEDS: Azithromycin 500 MG in 0.9 % Sodium Chloride 250 ML 125 MG IV ×2 (03:24→22:55)
[2021-02-02] MEDS: Enoxaparin Sodium 40 MG/0.4 ML SYRINGE SUBCUT (03:27)
[2021-02-02] MEDS: dexAMETHasone sod phosphate 4 MG/ML VIAL 6 MG IVPUSH ×2 (03:27→09:51)
[2021-02-02 04:14] LABS: Reflex Lactate? Lactic Acid Added
[2021-02-02 04:33] LABS: MANUAL DIFF FLAG NO
[2021-02-02 04:35] LABS: Basophils Percent Auto 0.1 % (0-2); Hematocrit 40.2 % (37.0-47.0); Hemoglobin 13.2 g/dl (12.0-16.0); Imm Gran Abs Auto 0.08 X10*3/uL (0.00-0.03); Imm Gran Pct Auto 0.8 % (0.0-0.4); Lymphocytes Absolute Auto 0.7 X10*3/uL (1.2-4.9); Lymphocytes Percent Auto 7.2 % (20-40); Mean Corpuscular HGB Conc 32.8 g/dl (31.0-35.0); Mean Corpuscular Hemoglobin 30.1 pg (27.0-33.0); Mean Corpuscular Volume 91.6 fL (80.0-98.0); Mean Platelet Volume 11.9 fL (9.4-12.3); Monocytes Absolute Auto 0.4 X10*3/uL (0.1-1.2); Monocytes Percent Auto 3.8 % (2-11); Neutrophils Absolute Auto 8.8 x10*3/uL (2.0-8.3); Neutrophils Percent Auto 88.1 % (45-73); Platelet Count 153 X10*3/uL (160-400); Red Blood Count 4.39 X10*6/uL (4.20-5.50)
[2021-02-02 04:50] LABS: ~Lactic Acid-LAB USE ONLY 1.6 mmol/L (0.5-2.0)
[2021-02-02 04:54] LABS: Estimated Average Glucose 120 mg/dL; Hemoglobin A1c % 5.8 %
[2021-02-02 04:56] LABS: Anion Gap 15 (12-20); Blood Urea Nitrogen 28 mg/dL (9-16); Calcium 8.8 mg/dL (8.4-10.2); Carbon Dioxide 21 mmol/L (22-29); Chloride 125 mmol/L (96-108); Creatinine Clr Calc Pharmacy 18.5; Estimated Glomerular Filt Rate 27; Glucose Random 154 mg/dL (60-115); Potassium 3.6 mmol/L (3.3-5.1); Sodium 157 mmol/L (135-145)
[2021-02-02] MEDS: Dextrose 5 % 1,000 ML 50 ML IVCONT (05:35)
[2021-02-02 05:56] LABS: Troponin-I High Sensitivity 90.2 ng/L (<3.5-17.0)
--- NOTE | 2021-02-02 05:57 | PC.NURSE ---
Mojgan aware of repeat trop no additional orders at this time
[2021-02-02 07:25] LABS: Glucose, Whole Blood 138 mg/dL (60-115)
[2021-02-02 08:15] LABS: Glucose, Whole Blood 139 mg/dL (60-115)
[2021-02-02] MEDS: Famotidine/PF 20 MG/2 ML VIAL IVPUSH ×2 (09:51→22:39)
--- NOTE | 2021-02-02 10:26 | PM.PNNEP ---
Subjective Subjective Date of Service: 02/02/21 Interval history: Patient seen and examined consult dictated Physical Exam Vital Signs: Vital Signs: Last Vital Signs Temp 98.6 F 02/02/21 03:23 Pulse 68 02/02/21 07:19 Resp 24 H 02/02/21 07:19 BP 129/61 02/02/21 07:19 Pulse Ox 100 02/02/21 07:19 Oxygen Flow Rate 2 02/01/21 23:52 BMI result Body Mass Index 29.2 Objective Data Labs CBC & Chem 7: 02/02/21 04:27 02/02/21 04:27 Labs: Laboratory Results - last 24 hr 02/01/21 02/02/21 02/02/21 23:53 00:18 00:24 WBC 13.8 H RBC 4.85 Hgb 14.6 Hct 44.1 MCV 90.9 MCH 30.1 MCHC 33.1 RDW 13.9 Plt Count 193 MPV 12.4 H Immature Gran % (Auto) 0.8 H Neut % (Auto) 92.6 H Lymph % (Auto) 3.5 L [place] % (Auto) 3.0 Eos % (Auto) 0.0 Baso % (Auto) 0.1 Lymph # (Auto) 0.5 L [place] # (Auto) 0.4 Eos # (Auto) 0.0 Baso # (Auto) 0.0 Abs Immat Gran (auto) 0.11 H Absolute Neuts (auto) 12.8 H Absolute Nucleated RBC 0.020 H Nucleated RBC % (auto) 0.1 Smear Tech's Comments VERIFIED Sodium Potassium Chloride Carbon Dioxide Anion Gap BUN Creatinine Estim Creat Clear Calc Estimated GFR POC Glucose 216 H Random Glucose Estimat Average Glucose Hemoglobin A1c % Lactic Acid Lactic Acid F/U @ 2Hr Calcium Total Bilirubin AST ALT Alkaline Phosphatase Troponin I High Sens Total Protein Albumin Procalcitonin Urine Color Urine Appearance Urine pH Ur Specific [place] Urine Protein Urine Glucose (UA) Urine Ketones Urine Blood Urine Nitrite Ur Leukocyte Esterase Urine RBC Urine WBC Ur Squamous Epith Cells Amorphous Sediment Urine Bacteria Hyaline Casts Granular Casts Urine Mucus COVID-19 (JAGUAR) Positive A COVID-19 Clin Com See Note 02/02/21 02/02/21 02/02/21 00:24 00:24 01:04 WBC RBC Hgb Hct MCV MCH MCHC RDW Plt Count MPV Immature Gran % (Auto) Neut % (Auto) Lymph % (Auto) [place] % (Auto) Eos % (Auto) Baso % (Auto) Lymph # (Auto) [place] # (Auto) Eos # (Auto) Baso # (Auto) Abs Immat Gran (auto) Absolute Neuts (auto) Absolute Nucleated RBC Nucleated RBC % (auto) Smear Tech's Comments Sodium 155 H Potassium 4.6 Chloride 119 H Carbon Dioxide 19 L Anion Gap 22 H BUN 25 H Creatinine 1.72 H Estim Creat Clear Calc 19.1 Estimated GFR 28 POC Glucose Random Glucose 207 H Estimat Average Glucose Hemoglobin A1c % Lactic Acid Lactic Acid F/U @ 2Hr Calcium 9.8 Total Bilirubin 0.8 AST 48 H D ALT 17 Alkaline Phosphatase 118 H Troponin I High Sens 62.0 H* Total Protein 9.0 H Albumin 4.1 Procalcitonin Urine Color YELLOW Urine Appearance HAZY Urine pH 6.0 Ur Specific [place] 1.025 Urine Protein 3+ H Urine Glucose (UA) NEG Urine Ketones NEG Urine Blood 1+ H Urine Nitrite NEG Ur Leukocyte Esterase NEG Urine RBC 0-2 Urine WBC 0-2 Ur Squamous Epith Cells NONE Amorphous Sediment 1+ Urine Bacteria NONE Hyaline Casts 1-4 Granular Casts 0-2 Urine Mucus 2+ COVID-19 (JAGUAR) COVID-19 Clin Com 02/02/21 02/02/21 02/02/21 02:09 02:09 04:27 WBC 10.0 RBC 4.39 Hgb 13.2 Hct 40.2 MCV 91.6 MCH 30.1 MCHC 32.8 RDW 14.0 Plt Count 153 L MPV 11.9 Immature Gran % (Auto) 0.8 H Neut % (Auto) 88.1 H Lymph % (Auto) 7.2 L [place] % (Auto) 3.8 Eos % (Auto) 0.0 Baso % (Auto) 0.1 Lymph # (Auto) 0.7 L [place] # (Auto) 0.4 Eos # (Auto) 0.0 Baso # (Auto) 0.0 Abs Immat Gran (auto) 0.08 H Absolute Neuts (auto) 8.8 H Absolute Nucleated RBC 0.000 Nucleated RBC % (auto) 0.0 Smear Tech's Comments Sodium Potassium Chloride Carbon Dioxide Anion Gap BUN Creatinine Estim Creat Clear Calc Estimated GFR POC Glucose Random Glucose Estimat Average Glucose Hemoglobin A1c % Lactic Acid 2.4 H* Lactic Acid F/U @ 2Hr Calcium Total Bilirubin AST ALT Alkaline Phosphatase Troponin I High Sens Total Protein Albumin Procalcitonin 5.91 Urine Color Urine Appearance Urine pH Ur Specific [place] Urine Protein Urine Glucose (UA) Urine Ketones Urine Blood Urine Nitrite Ur Leukocyte Esterase Urine RBC Urine WBC Ur Squamous Epith Cells Amorphous Sediment Urine Bacteria Hyaline Casts Granular Casts Urine Mucus COVID-19 (JAGUAR) COVID-19 Clin Com 02/02/21 02/02/21 02/02/21 04:27 04:27 04:27 WBC RBC Hgb Hct MCV MCH MCHC RDW Plt Count MPV Immature Gran % (Auto) Neut % (Auto) Lymph % (Auto) [place] % (Auto) Eos % (Auto) Baso % (Auto) Lymph # (Auto) [place] # (Auto) Eos # (Auto) Baso # (Auto) Abs Immat Gran (auto) Absolute Neuts (auto) Absolute Nucleated RBC Nucleated RBC % (auto) Smear Tech's Comments Sodium 157 H Potassium 3.6 D Chloride 125 H Carbon Dioxide 21 L Anion Gap 15 BUN 28 H Creatinine 1.78 H Estim Creat Clear Calc 18.5 Estimated GFR 27 POC Glucose Random Glucose 154 H Estimat Average Glucose 120 Hemoglobin A1c % 5.8 Lactic Acid Lactic Acid F/U @ 2Hr 1.6 Calcium 8.8 D Total Bilirubin AST ALT Alkaline Phosphatase Troponin I High Sens Total Protein Albumin Procalcitonin Urine Color Urine Appearance Urine pH Ur Specific [place] Urine Protein Urine Glucose (UA) Urine Ketones Urine Blood Urine Nitrite Ur Leukocyte Esterase Urine RBC Urine WBC Ur Squamous Epith Cells Amorphous Sediment Urine Bacteria Hyaline Casts Granular Casts Urine Mucus COVID-19 (JAGUAR) COVID-19 Clin Com 02/02/21 02/02/21 02/02/21 04:27 07:17 08:11 WBC RBC Hgb Hct MCV MCH MCHC RDW Plt Count MPV Immature Gran % (Auto) Neut % (Auto) Lymph % (Auto) [place] % (Auto) Eos % (Auto) Baso % (Auto) Lymph # (Auto) [place] # (Auto) Eos # (Auto) Baso # (Auto) Abs Immat Gran (auto) Absolute Neuts (auto) Absolute Nucleated RBC Nucleated RBC % (auto) Smear Tech's Comments Sodium Potassium Chloride Carbon Dioxide Anion Gap BUN Creatinine Estim Creat Clear Calc Estimated GFR POC Glucose 138 H 139 H Random Glucose Estimat Average Glucose Hemoglobin A1c % Lactic Acid Lactic Acid F/U @ 2Hr Calcium Total Bilirubin AST ALT Alkaline Phosphatase Troponin I High Sens 90.2 H* Total Protein Albumin Procalcitonin Urine Color Urine Appearance Urine pH Ur Specific [place] Urine Protein Urine Glucose (UA) Urine Ketones Urine Blood Urine Nitrite Ur Leukocyte Esterase Urine RBC Urine WBC Ur Squamous Epith Cells Amorphous Sediment Urine Bacteria Hyaline Casts Granular Casts Urine Mucus COVID-19 (JAGUAR) COVID-19 Clin Com Procedures Date of Service Date of Service: 02/02/21 Assessment & Plan Assessment and plan (1) XAVIER (acute kidney injury): Status: Acute (2) Hypernatremia: Status: Acute Assessment and Plan: XAVIER due to renal hypoperfusion elevated serum sodium due to free water deficit normal baseline kidney function REC urine sodium urine protein to creatinine ratio increase D5W 125 cc/hr follow kidney function and electrolytes Time Spent With Patient Time: Total time spent is greater than 50% in coordination of care (as documented) at patient's floor/unit and/or counseling patient: Progress Note: Quality Stroke Does the patient have a stroke diagnosis?: No
--- NOTE | 2021-02-02 10:55 | CONS_ITS ---
DATE OF SERVICE: HISTORY OF PRESENT ILLNESS: This is an 85-year-old patient with a normal baseline kidney function, who presented to the hospital with generalized weakness and was noted to have elevated serum sodium and worsening kidney function. Apparently, the patient has been feeling weak, not being able to have adequate oral intake. She is reported to be increasingly more confused according to her daughter. There is no report of chest pain, shortness of breath, vomiting, or diarrhea. The patient was started on IV fluid in the emergency room. PAST MEDICAL HISTORY: Remarkable for hypertension, dementia, osteoarthritis, osteoporosis. PAST SURGICAL HISTORY: Notable for history of nephrectomy. MEDICATIONS: As an outpatient included amlodipine, Seroquel, acetaminophen. ALLERGIES: SHE IS NOT ALLERGIC TO MEDICATIONS. SOCIAL HISTORY: She does not smoke. FAMILY HISTORY: Negative for kidney disease. REVIEW OF SYSTEMS: 10-point review of system negative except for pertinent History of Present Illness. PHYSICAL EXAMINATION: VITAL SIGNS: Blood pressure is 129/61, heart rate 68, respiratory rate 24, she is afebrile. CONSTITUTIONAL: Looks stated age. No acute distress. NEUROLOGIC: Alert, awake, and normocephalic. NECK: Supple. LUNGS: Good air entry bilaterally. CARDIOVASCULAR: S1, S2. No rub. ABDOMEN: Soft, nontender. EXTREMITIES: No peripheral edema. LABORATORY DATA: Sodium 157, potassium 3.6, chloride 125, CO2 of 21, BUN 28, creatinine 1.78. Lactic acid was 2.4. White count 10, hemoglobin 15.2, platelet count 153. Urinalysis with 3+ protein. IMPRESSION: 1. Acute kidney injury. 2. Hypernatremia. 3. Solitary kidney. PLAN: This is a patient with acute kidney injury due to compromised kidney perfusion, tubular stress against the backdrop of a solitary kidney. She has elevated serum sodium due to free water deficit. Her kidney function is normal at baseline and I would recommend to continue with hypotonic fluid and we increased the rate to 125 cc/hour. We will check her urine sodium and follow closely her kidney function and electrolytes. Thank you for allowing me to participate in the care of this patient. Christiano Farley MD GF/MODL / [phone]
[2021-02-02 12:57] LABS: Glucose, Whole Blood 139 mg/dL (60-115)
[2021-02-02 13:55] LABS: Troponin-I High Sensitivity 126.9 ng/L (<3.5-17.0)
--- NOTE | 2021-02-02 14:26 | P.EN_ITS ---
Event Note Date of Service: 02/02/21 Event Note: Patient seen and examined, reviewed labs, vitals, and meds. Has mo stly assymptomatic covid, with underlying XAVIER/ dehydration and hypernatremia. DC O2 is stating fine on room, persistent hypernatremia, so increase fluid to 200 and continue monitoring sodium level. O/w assessment and plan per H and P from today
--- NOTE | 2021-02-02 15:01 | PC.NURSE ---
pt continues to rest, no apparent distress. denies cp or sob att. hospitalist made aware of trending troponins. vss.
[2021-02-02] MEDS: Dextrose 5 % 1,000 ML 200 ML IVCONT ×2 (15:03→22:55)
--- NOTE | 2021-02-02 15:03 | MHC.CM.PN ---
CM ATTEMPTED CALLED PTS DAUGHTER, MARBELLA [phone], HOWEVER MARBELLA REPORTED SHE WOULD NEED AN ADJUTANT GENERAL CM ATTEMPTED TO OBTAIN A TELEPHONE ADJUTANT GENERAL VIA [employer] AT 1448 HOURS, HOWEVER AFTER WAITING ON HOLD FOR 10+ MINUTES, ARIELLE WAS UNABLE TO CONTINUE WAITING. CM WILL ATTEMPT TO CONTACT FAMILY AGAIN TOMORROW
[2021-02-02 15:06] LABS: Anion Gap 13 (12-20); Carbon Dioxide 26 mmol/L (22-29); Chloride 122 mmol/L (96-108); Potassium 5.1 mmol/L (3.3-5.1); Sodium 156 mmol/L (135-145)
[2021-02-02 17:26] LABS: Glucose, Whole Blood 108 mg/dL (60-115)
--- NOTE | 2021-02-02 19:50 | PC.NURSE ---
Report given to Overflow RN. Plan to update VS and transfer pt to unit.
[2021-02-03] VITALS (12 sets, daily range): BP systolic 102–193; BP diastolic 65–97; PULSE 57–90; RESP 18–25; TEMP 36.1–37.1; O2SAT 94–99; BMI 29.2
[2021-02-03] MEDS: 0.9 % Sodium Chloride Flush 3 ML SYRINGE IVFLUSH ×3 (00:47→21:16)
[2021-02-03] MEDS: Enoxaparin Sodium 40 MG/0.4 ML SYRINGE SUBCUT (02:52)
[2021-02-03] MEDS: Dextrose 5 % 1,000 ML 200 ML IVCONT ×3 (05:07→17:27)
--- NOTE | 2021-02-03 07:14 | PHA.MEDREC ---
Pharmacy Consult ? Medication Reconciliation RN completed med rec, pharmacy reviewed
[2021-02-03 08:03] LABS: Glucose, Whole Blood 118 mg/dL (60-115)
[2021-02-03] MEDS: Famotidine/PF 20 MG/2 ML VIAL IVPUSH ×2 (08:24→21:10)
[2021-02-03] MEDS: dexAMETHasone sod phosphate 4 MG/ML VIAL 6 MG IVPUSH (08:24)
--- NOTE | 2021-02-03 09:17 | P.PNIM_ITS ---
Subjective Subjective Date of Service: 02/03/21 Interval History: f/u on covid 19, xavier, hypernatremia. Alert, seem confused baselne not clear, sodium level still high (repeat pending this morning), BP is high this morning and offers no othe complaint Review of Systems no fever some confusion, no sob Physical Exam Vital Signs: Vital Signs: Last Vital Signs Temp 98 F 02/03/21 07:55 Pulse 76 02/03/21 07:55 Resp 23 H 02/03/21 07:55 BP 193/97 H 02/03/21 07:55 Pulse Ox 94 02/03/21 07:55 Oxygen Flow Rate 2 02/01/21 23:52 BMI result Body Mass Index 29.2 Const: Other: General: AO X 1, no acute distress Resp: CTA bilateral, normal effort CVS: S1,S2,RRR GI: +BS, NT, no distention Skin: No rash Neuro: motor grossly intact Psych: appropriate affect Objective Data Active Medications Acetaminophen (Acetaminophen 325 Mg Tablet) 650 mg PO Q6H PRN PRN Reason: Pain, Mild (Pain Scale 1-3) Dexamethasone Sodium Phosphate (Dexamethasone Sod Phosphate 4 Mg/Ml Vial) 6 mg IVPUSH DAILY [facility] Last Admin: 02/03/21 08:24 Dose: 6 mg Documented by: SAMANTHA Dextrose (Dextrose 50 % 25 Gm/50 Ml Vial) 25 gm IVPUSH Q15M PRN; Protocol PRN Reason: per Hypoglycemia Standing Ord. Enoxaparin Sodium (Enoxaparin Sodium 40 Mg/0.4 Ml Syringe) 40 mg SUBCUT Q24H [facility] Last Admin: 02/03/21 02:52 Dose: 40 mg Documented by: NYASIA Famotidine (Famotidine/Pf 20 Mg/2 Ml Vial) 20 mg IVPUSH BID [facility] Last Admin: 02/03/21 08:24 Dose: 20 mg Documented by: SAMANTHA Glucose (Glucose Gel 15 Gm Gel..Gram.) 15 gm PO Q15M PRN; Protocol PRN Reason: per Hypoglycemia Standing Ord. Ceftriaxone Sodium 1 gm/ (Sodium Chloride) 50 mls @ 100 mls/hr IV Q24H [facility] Last Infusion: 02/02/21 22:55 Dose: 0 mls/hr Documented by: SCOTTY Azithromycin 500 mg/ Sodium (Chloride) 250 mls @ 125 mls/hr IV Q24H [facility] Last Infusion: 02/03/21 03:54 Dose: 0 mls/hr Documented by: SCOTTY Dextrose (D5w) 1,000 mls @ 200 mls/hr IVCONT .Q5H [facility] Last Admin: 02/03/21 07:57 Dose: 200 mls/hr Documented by: SAMANTHA Insulin Human Lispro (Insulin Lispro 100 Unit/Ml 3 Ml Vial) 0 unit SUBCUT QIDACHS [facility]; Protocol Last Admin: 02/03/21 07:57 Dose: Not Given Documented by: SAMANTHA Non-Admin Reason: See Note Melatonin (Melatonin 3 Mg Tablet) 6 mg PO BEDTIME PRN PRN Reason: Insomnia Morphine Sulfate (Morphine Sulfate 4 Mg/Ml Cartridge) 1 mg IVPUSH Q4H PRN; Protocol PRN Reason: Pain, SOB Senna (Sennosides 8.6 Mg Tablet) 17.2 mg PO BEDTIME PRN PRN Reason: Constipation Sodium Chloride (0.9 % Sodium Chloride Flush 3 Ml Syringe) 3 ml IVFLUSH QSHIFT [facility] Last Admin: 02/03/21 07:58 Dose: 3 ml Documented by: SAMANTHA Labs CBC & Chem 7: 02/02/21 04:27 02/02/21 14:27 Labs: Laboratory Results - last 24 hr 02/02/21 02/02/21 02/02/21 00:24 04:27 12:51 Sodium 155 H 157 H Anion Gap POC Glucose 139 H Troponin I High Sens 02/02/21 02/02/21 02/02/21 13:15 14:27 17:21 Sodium 156 H Anion Gap 13 POC Glucose 108 Troponin I High Sens 126.9 H* 02/03/21 07:54 Sodium Anion Gap POC Glucose 118 H Troponin I High Sens Microbiology Microbiology Results: Microbiology 02/02/21 02:08 Blood Culture - Preliminary Blood - Venous No growth after 24 hours. 02/02/21 02:08 Blood Culture - Preliminary Blood - Venous Prelim: GPC Gram Stain only Assessment and Plan (1) Non-STEMI (non-ST elevated myocardial infarction): Status: Acute (2) Acute hypoxemic respiratory failure due to COVID-19: Status: Acute (3) XAVIER (acute kidney injury): Status: Acute (4) Hypernatremia: Status: Acute Assessment and Plan: ? 85-year-old female with a past medical history of hypertension, remote history of colon cancer status post resection-subsequent colostomy bag; dementia, arthritis, osteoporosis; presented to the hospital today with a chief complaint of generalized weakness.? Noted to have COVID-19 pneumonia.? Admitted for further management. Metabolic encephalopathy d/t dedhydration, renal failure and hypernatremia, on top of underlying dementia. Remains confused but seems beter -continue treatment of underlying issues Acute Hypoxia d/t COVID-19 pneumonia.? On supplemental oxygen. Add steroid? COVID-19 pneumonia: No sings of bacterial infection dc Abx, ? Continue Decadron 6 mg daily.? Id consult for further recommendations.? 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 XAVIER: Likely prerenal d/t decrease oral intake, being hydrated and follow renal function Hypernatremia:? on D5, repeat level today, Nephrology following. HTN--BP high, restart home meds. ? DVT prophylaxis:? [employer] Quality Stroke Does the patient have a stroke diagnosis?: No VTE Prior VTE?: No VTE Risk Level:: Medical - moderate - high VTE Device Contraindication: Treatment Not Indicated VTE Drug Contraindication: N/A - Med Ordered
[2021-02-03] MEDS: Aspirin 81 MG TAB.CHEW PO (10:04)
[2021-02-03] MEDS: amLODIPine Besylate 5 MG TABLET PO (10:04)
[2021-02-03] MEDS: Metoprolol Tartrate 12.5 MG HALFTAB PO ×2 (10:05→21:10)
[2021-02-03 10:25] LABS: Anion Gap 19 (12-20); Blood Urea Nitrogen 24 mg/dL (9-16); Calcium 8.7 mg/dL (8.4-10.2); Carbon Dioxide 19 mmol/L (22-29); Chloride 116 mmol/L (96-108); Estimated Glomerular Filt Rate 44; Glucose Random 123 mg/dL (60-115); Potassium 3.9 mmol/L (3.3-5.1); Sodium 149 mmol/L (135-145)
[2021-02-03 10:26] LABS: Troponin-I High Sensitivity 51.2 ng/L (<3.5-17.0)
--- NOTE | 2021-02-03 10:42 | PM.PNNEP ---
Subjective Subjective Date of Service: 02/03/21 Interval history: f/u on covid 19, x[place], hypernatremia. Alert, seem confused baselne not clear, sodium level still high (repeat pending this morning), BP is high this morning and offers no othe complaint Physical Exam Vital Signs: Vital Signs: Last Vital Signs Temp 98 F 02/03/21 07:55 Pulse 90 02/03/21 10:05 Resp 23 H 02/03/21 07:55 BP 190/97 H 02/03/21 10:05 Pulse Ox 94 02/03/21 07:55 Oxygen Flow Rate 2 02/01/21 23:52 BMI result Body Mass Index 29.2 Const: Other: General: AO X 1, no acute distress Resp: CTA bilateral, normal effort CVS: S1,S2,RRR GI: +BS, NT, no distention Skin: No rash Neuro: motor grossly intact Psych: appropriate affect Objective Data Labs CBC & Chem 7: 02/02/21 04:27 02/03/21 09:28 Labs: Laboratory Results - last 24 hr 02/02/21 02/02/21 02/02/21 12:51 13:15 14:27 Sodium 156 H Potassium 5.1 D Chloride 122 H Carbon Dioxide 26 Anion Gap 13 BUN Creatinine Estim Creat Clear Calc Estimated GFR POC Glucose 139 H Random Glucose Calcium Troponin I High Sens 126.9 H* 02/02/21 02/03/21 02/03/21 17:21 07:54 09:28 Sodium 149 H Potassium 3.9 D Chloride 116 H Carbon Dioxide 19 L Anion Gap 19 BUN 24 H Creatinine 1.18 Estim Creat Clear Calc 28.0 Estimated GFR 44 POC Glucose 108 118 H Random Glucose 123 H Calcium 8.7 Troponin I High Sens 02/03/21 09:29 Sodium Potassium Chloride Carbon Dioxide Anion Gap BUN Creatinine Estim Creat Clear Calc Estimated GFR POC Glucose Random Glucose Calcium Troponin I High Sens 51.2 H* D Microbiology Microbiology Results: Microbiology 02/02/21 02:08 Blood - Venous Blood Culture - Final Coag negative Staphylococcus 02/02/21 02:08 Blood - Venous Blood Culture - Preliminary No growth after 24 hours. Procedures Date of Service Date of Service: 02/03/21 Assessment & Plan Assessment and plan (1) Non-STEMI (non-ST elevated myocardial infarction): Status: Acute (2) Acute hypoxemic respiratory failure due to COVID-19: Status: Acute (3) XAVIER (acute kidney injury): Status: Acute Assessment and Plan: resolved (4) Hypernatremia: Status: Acute Assessment and Plan: increase free h2O Assessment and Plan: ? 85-year-old female with a past medical history of hypertension, remote history of colon cancer status post resection-subsequent colostomy bag; dementia, arthritis, osteoporosis; presented to the hospital today with a chief complaint of generalized weakness.? Noted to have COVID-19 pneumonia.? Admitted for further management. Metabolic encephalopathy d/t dedhydration, renal failure and hypernatremia, on top of underlying dementia. Remains confused but seems beter -continue treatment of underlying issues Acute Hypoxia d/t COVID-19 pneumonia.? On supplemental oxygen. Add steroid? COVID-19 pneumonia: No sings of bacterial infection dc Abx, ? Continue Decadron 6 mg daily.? Id consult for further recommendations.? 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 XAVIER: Likely prerenal d/t decrease oral intake, being hydrated and follow renal function Hypernatremia:? on D5,increase rate HTN--BP high, restart home meds. ? DVT prophylaxis:? Lovenox Time Spent With Patient Time: Total time spent is greater than 50% in coordination of care (as documented) at patient's floor/unit and/or counseling patient: Progress Note: Quality Stroke Does the patient have a stroke diagnosis?: No
[2021-02-03] MEDS: Dextrose 5 % 1,000 ML 300 ML IVCONT ×2 (11:57→14:34)
[2021-02-03 13:04] LABS: Glucose, Whole Blood 143 mg/dL (60-115)
--- NOTE | 2021-02-03 16:44 | W.PM.IDCN ---
History of Present Illness Data of Consult Service Date: 02/03/21 Requesting physician: Manjeet Escobar Primary Care Provider: Maria Shipley MD [facility] Reason for consult: shortness of breath She presents with cough and shortness of breath She has symptoms about 7-10 days She has positive COVID test Review of Systems Review of Systems: Yes all other systems are reviewed and are negative PMFSH Past Medical History Medical History Arthritis Dementia Hypertension Osteoporosis S/p nephrectomy Surgical History Surgical History (Updated 02/02/21 @ 00:07 by Chidi Roche MD) S/P cholecystectomy S/P colon resection Social History Social History Alcohol intake: never Meds Allergies Allergy/AdvReac Type Severity Reaction Status Date / Time No Known Allergies Allergy Verified 02/02/21 00:12 [No Known Allergies*] Active Medications: Current Medications Acetaminophen (Acetaminophen 325 Mg Tablet) 650 mg PO Q6H PRN PRN Reason: Pain, Mild (Pain Scale 1-3) Amlodipine Besylate (Amlodipine Besylate 5 Mg Tablet) 5 mg PO DAILY [facility]; Protocol Last Admin: 02/03/21 10:04 Dose: 5 mg Documented by: Aspirin (Aspirin 81 Mg Tab.Chew) 81 mg PO DAILY [facility] Last Admin: 02/03/21 10:04 Dose: 81 mg Documented by: Atorvastatin Calcium (Atorvastatin Calcium 10 Mg Tablet) 10 mg PO BEDTIME [facility] Dexamethasone Sodium Phosphate (Dexamethasone Sod Phosphate 4 Mg/Ml Vial) 6 mg IVPUSH DAILY [facility] Last Admin: 02/03/21 08:24 Dose: 6 mg Documented by: Dextrose (Dextrose 50 % 25 Gm/50 Ml Vial) 25 gm IVPUSH Q15M PRN; Protocol PRN Reason: per Hypoglycemia Standing Ord. Enoxaparin Sodium (Enoxaparin Sodium 40 Mg/0.4 Ml Syringe) 40 mg SUBCUT Q24H [facility] Last Admin: 02/03/21 02:52 Dose: 40 mg Documented by: Famotidine (Famotidine/Pf 20 Mg/2 Ml Vial) 20 mg IVPUSH BID [facility] Last Admin: 02/03/21 08:24 Dose: 20 mg Documented by: Glucose (Glucose Gel 15 Gm Gel..Gram.) 15 gm PO Q15M PRN; Protocol PRN Reason: per Hypoglycemia Standing Ord. Ceftriaxone Sodium 1 gm/ (Sodium Chloride) 50 mls @ 100 mls/hr IV Q24H [facility] Last Infusion: 02/02/21 22:55 Dose: Infused Documented by: Azithromycin 500 mg/ Sodium (Chloride) 250 mls @ 125 mls/hr IV Q24H [facility] Last Infusion: 02/03/21 03:54 Dose: Infused Documented by: Dextrose (D5w) 1,000 mls @ 200 mls/hr IVCONT .Q5H [facility] Last Infusion: 02/03/21 12:59 Dose: Infused Documented by: Dextrose (D5w) 1,000 mls @ 300 mls/hr IVCONT .Q3H20M [facility] Last Admin: 02/03/21 14:34 Dose: 300 mls/hr Documented by: Insulin Human Lispro (Insulin Lispro 100 Unit/Ml 3 Ml Vial) 0 unit SUBCUT QIDACHS [facility]; Protocol Last Admin: 02/03/21 12:52 Dose: Not Given Documented by: Melatonin (Melatonin 3 Mg Tablet) 6 mg PO BEDTIME PRN PRN Reason: Insomnia Metoprolol Tartrate (Metoprolol Tartrate 12.5 Mg Halftab) 12.5 mg PO BID [facility]; Protocol Last Admin: 02/03/21 10:05 Dose: 12.5 mg Documented by: Morphine Sulfate (Morphine Sulfate 4 Mg/Ml Cartridge) 1 mg IVPUSH Q4H PRN; Protocol PRN Reason: Pain, SOB Quetiapine Fumarate (Quetiapine Fumarate 25 Mg Tablet) 25 mg PO BEDTIME [facility] Senna (Sennosides 8.6 Mg Tablet) 17.2 mg PO BEDTIME PRN PRN Reason: Constipation Sodium Chloride (0.9 % Sodium Chloride Flush 3 Ml Syringe) 3 ml IVFLUSH QSHIFT [facility] Last Admin: 02/03/21 14:40 Dose: Not Given Documented by: Home Medications Medication Instructions Recorded Confirmed Last Taken Type acetaminophen 650 mg 2 tab PO Q12H PRN 02/02/21 02/02/21 Unknown History tablet,extended release (Pain Relief (acetaminophen)) amlodipine 5 mg tablet 1 tab PO DAILY 02/02/21 02/02/21 Unknown History quetiapine 25 mg tablet 1 tab PO BEDTIME 02/02/21 02/02/21 Unknown History Physical Exam Vital Signs: Vital Signs: Last Vital Signs Temp 98.8 F 02/03/21 14:43 Pulse 69 02/03/21 14:43 Resp 24 H 02/03/21 14:43 BP 144/69 H 02/03/21 14:43 Pulse Ox 96 02/03/21 14:43 Oxygen Flow Rate 2 02/01/21 23:52 BMI result Body Mass Index 29.2 Const: General: cooperative Eyes: General: appearance normal, both eyes and all related structures Resp: Effort & Inspection: normal respiratory effort Cardio: Rate: regular rate Rhythm: regular rhythm GI: Palpation (GI): nontender Extrem: General: Yes normal to inspection Results Labs CBC & Chem 7: 02/02/21 04:27 02/03/21 09:28 Labs: BMP 02/03/21 09:28 Sodium 149 H Potassium 3.9 D Chloride 116 H Carbon Dioxide 19 L BUN 24 H Creatinine 1.18 Calcium 8.7 Microbiology Microbiology Results: Microbiology 02/02/21 02:08 Blood - Venous Blood Culture - Final Coag negative Staphylococcus 02/02/21 02:08 Blood - Venous Blood Culture - Preliminary No growth after 24 hours. Assessment and Plan (1) Acute hypoxemic respiratory failure due to COVID-19: Status: Acute She has hypoxia She also has possible bacterial pneumonia (2) Non-STEMI (non-ST elevated myocardial infarction): Status: Acute Agree with Zmax and Ceftriaxone Dexamethasone Not candidate due to low oxygen needs for baricitinib Duration longer than Remdesivirs interval of helpfulness
[2021-02-03 16:59] LABS: Glucose, Whole Blood 259 mg/dL (60-115)
[2021-02-03] MEDS: Insulin Lispro 100 UNIT/ML 3 ML VIAL SUBCUT ×2 (17:25→21:11)
[2021-02-03] MEDS: QUEtiapine Fumarate 25 MG TABLET PO (21:11)
[2021-02-03] MEDS: Atorvastatin Calcium 10 MG TABLET PO (21:11)
[2021-02-03] MEDS: Azithromycin 500 MG in 0.9 % Sodium Chloride 250 ML 125 MG IV (21:13)
[2021-02-03] MEDS: cefTRIAXone sodium 1 GM in 0.9 % Sodium Chloride 50 ML IV (21:13)
[2021-02-03 22:24] LABS: Glucose, Whole Blood 195 mg/dL (60-115)
[2021-02-04] VITALS (8 sets, daily range): BP systolic 136–180; BP diastolic 72–89; PULSE 77–89; RESP 18–20; TEMP 36.3–37.1; O2SAT 90–96
[2021-02-04] MEDS: Dextrose 5 % 1,000 ML 200 ML IVCONT (02:27)
[2021-02-04] MEDS: Enoxaparin Sodium 40 MG/0.4 ML SYRINGE SUBCUT (02:28)
[2021-02-04 07:28] LABS: Glucose, Whole Blood 102 mg/dL (60-115)
[2021-02-04] MEDS: Aspirin 81 MG TAB.CHEW PO (08:51)
[2021-02-04] MEDS: dexAMETHasone sod phosphate 4 MG/ML VIAL 6 MG IVPUSH (08:51)
[2021-02-04] MEDS: amLODIPine Besylate 5 MG TABLET PO (08:51)
[2021-02-04] MEDS: Metoprolol Tartrate 12.5 MG HALFTAB PO ×2 (08:52→21:08)
[2021-02-04] MEDS: 0.9 % Sodium Chloride Flush 3 ML SYRINGE IVFLUSH ×2 (08:52→16:44)
[2021-02-04] MEDS: Famotidine/PF 20 MG/2 ML VIAL IVPUSH ×2 (08:52→21:13)
--- NOTE | 2021-02-04 09:15 | MHC.CM.PN ---
Patient is Covid (+) and has Dementia; CM spoke with Daughter/Amarilis in [place] @ [phone] and addressed IMM with her (a copy has been placed on the chart). Patient lives in an apartment with her Daughter/HCP/LOAN SERVICING OFFICER/Amarilis and Patient refused to use any DME to assist with mobility.Home/resume LOAN SERVICING OFFICER is the goal for dc and CM has initiated and will follow for dc planning. PCP is Dr. Maria Gracia.
[2021-02-04 09:53] LABS: Anion Gap 15 (12-20); Blood Urea Nitrogen 23 mg/dL (9-16); Calcium 8.9 mg/dL (8.4-10.2); Carbon Dioxide 24 mmol/L (22-29); Chloride 109 mmol/L (96-108); Creatinine Clr Calc Pharmacy 34.7; Estimated Glomerular Filt Rate 56; Glucose Random 104 mg/dL (60-115); Potassium 3.5 mmol/L (3.3-5.1); Sodium 144 mmol/L (135-145)
[2021-02-04 11:15] LABS: Glucose, Whole Blood 122 mg/dL (60-115)
--- NOTE | 2021-02-04 12:31 | P.PNIM_ITS ---
Subjective Subjective Date of Service: 02/04/21 Interval History: covid , hypernatremia Review of Systems seems awake, No fevers, still confused probably at her baseline as per daughter. As per daughter she is progressively declining p.o. intake ruiz almost 1 year or so. Needs help with all ADLs no short of breath Physical Exam Vital Signs: Vital Signs: Last Vital Signs Temp 97.9 F 02/04/21 11:05 Pulse 77 02/04/21 11:05 Resp 19 02/04/21 11:05 BP 180/80 H 02/04/21 11:05 Pulse Ox 96 02/04/21 11:05 Oxygen Flow Rate 2 02/01/21 23:52 BMI result Body Mass Index 29.2 General: AO X 1, no acute distress Resp:? CTA bilateral, normal effort CVS: S1,S2,RRR GI: +BS, NT, no distention Skin: No rash Neuro:? motor grossly intact Psych: appropriate affect Objective Data Active Medications Acetaminophen (Acetaminophen 325 Mg Tablet) 650 mg PO Q6H PRN PRN Reason: Pain, Mild (Pain Scale 1-3) Amlodipine Besylate (Amlodipine Besylate 5 Mg Tablet) 5 mg PO DAILY [facility]; Protocol Last Admin: 02/04/21 08:51 Dose: 5 mg Documented by: KEY Aspirin (Aspirin 81 Mg Tab.Chew) 81 mg PO DAILY [facility] Last Admin: 02/04/21 08:51 Dose: 81 mg Documented by: KEY Atorvastatin Calcium (Atorvastatin Calcium 10 Mg Tablet) 10 mg PO BEDTIME [facility] Last Admin: 02/03/21 21:11 Dose: 10 mg Documented by: MARIBEL Dexamethasone Sodium Phosphate (Dexamethasone Sod Phosphate 4 Mg/Ml Vial) 6 mg IVPUSH DAILY [facility] Last Admin: 02/04/21 08:51 Dose: 6 mg Documented by: KEY Comments: Dextrose (Dextrose 50 % 25 Gm/50 Ml Vial) 25 gm IVPUSH Q15M PRN; Protocol PRN Reason: per Hypoglycemia Standing Ord. Enoxaparin Sodium (Enoxaparin Sodium 40 Mg/0.4 Ml Syringe) 40 mg SUBCUT Q24H [facility] Last Admin: 02/04/21 02:28 Dose: 40 mg Documented by: MARIBEL Famotidine (Famotidine/Pf 20 Mg/2 Ml Vial) 20 mg IVPUSH BID [facility] Last Admin: 02/04/21 08:52 Dose: 20 mg Documented by: KEY Glucose (Glucose Gel 15 Gm Gel..Gram.) 15 gm PO Q15M PRN; Protocol PRN Reason: per Hypoglycemia Standing Ord. Ceftriaxone Sodium 1 gm/ (Sodium Chloride) 50 mls @ 100 mls/hr IV Q24H [facility] Last Infusion: 02/03/21 22:02 Dose: 0 mls/hr Documented by: BANDAR Azithromycin 500 mg/ Sodium (Chloride) 250 mls @ 125 mls/hr IV Q24H [facility] Last Infusion: 02/03/21 22:59 Dose: 0 mls/hr Documented by: BANDAR Insulin Human Lispro (Insulin Lispro 100 Unit/Ml 3 Ml Vial) 0 unit SUBCUT QIDACHS [facility]; Protocol Last Admin: 02/04/21 11:29 Dose: Not Given Documented by: KEY Non-Admin Reason: No Insulin Coverage Melatonin (Melatonin 3 Mg Tablet) 6 mg PO BEDTIME PRN PRN Reason: Insomnia Metoprolol Tartrate (Metoprolol Tartrate 12.5 Mg Halftab) 12.5 mg PO BID [facility]; Protocol Last Admin: 02/04/21 08:52 Dose: 12.5 mg Documented by: KEY Morphine Sulfate (Morphine Sulfate 4 Mg/Ml Cartridge) 1 mg IVPUSH Q4H PRN; Protocol PRN Reason: Pain, SOB Quetiapine Fumarate (Quetiapine Fumarate 25 Mg Tablet) 25 mg PO BEDTIME [facility] Last Admin: 02/03/21 21:11 Dose: 25 mg Documented by: MARIBEL Senna (Sennosides 8.6 Mg Tablet) 17.2 mg PO BEDTIME PRN PRN Reason: Constipation Sodium Chloride (0.9 % Sodium Chloride Flush 3 Ml Syringe) 3 ml IVFLUSH QSHIFT [facility] Last Admin: 02/04/21 08:52 Dose: 3 ml Documented by: KEY Labs CBC & Chem 7: 02/02/21 04:27 02/04/21 09:19 Labs: Laboratory Results - last 24 hr 02/03/21 02/03/21 02/03/21 12:46 16:56 20:12 Anion Gap Estim Creat Clear Calc Estimated GFR POC Glucose 143 H 259 H 195 H Random Glucose Calcium 02/04/21 02/04/21 02/04/21 07:24 09:19 11:07 Anion Gap 15 Estim Creat Clear Calc 34.7 Estimated GFR 56 POC Glucose 102 122 H Random Glucose 104 Calcium 8.9 Microbiology Microbiology Results: Microbiology 02/02/21 02:08 Blood Culture - Preliminary Blood - Venous No growth after 48 hours. 02/02/21 02:08 Blood Culture - Final Blood - Venous Coag negative Staphylococcus Assessment and Plan (1) Acute hypoxemic respiratory failure due to COVID-19: Status: Acute (2) Hypernatremia: Status: Acute Assessment and Plan: 85-year-old female with a past medical history of hypertension, remote history of colon cancer status post resection-subsequent colostomy bag; dementia, arthritis, osteoporosis; presented to the hospital today with a chief complaint of generalized weakness.? Noted to have COVID-19 pneumonia.? Admitted for further management. 1.Metabolic encephalopathy d/t dedhydration, renal failure and hypernatremia, on top of underlying dementia.? Remains confused but seems beter -continue treatment of underlying issues 2. Hypoxia d/t COVID-19 pneumonia.? On supplemental oxygen.? Add steroid? COVID-19 pneumonia: No sings of bacterial infection dc Abx, ? Continue Decadron 6 mg daily.? Id consult for further recommendations.? 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 4.XAVIER: Likely prerenal d/t decrease oral intake, being hydrated and follow renal function 5.Hypernatremia:?imrpoved , off fluids Free water 250 mL q.4 hours monitor electrolyte closely. 6.HTN-- off fluids BP high, adjusted amlodipine 10 mg daily. ? DVT prophylaxis:? Lovenox above d/w patient daughter miss hall-Gamaliel:[phone]: HCP- discussed patient overall prognosis seems poor long-term, patient still full code. He continue above management. Quality Stroke Does the patient have a stroke diagnosis?: No VTE Prior VTE?: No VTE Risk Level:: Medical - moderate - high VTE Device Contraindication: Treatment Not Indicated VTE Drug Contraindication: N/A - Med Ordered
--- NOTE | 2021-02-04 12:36 | P.CDIC_ITS ---
CDI Concurrent Query Documentation Clarification: PHYSICIAN'S DOCUMENTATION REQUEST Date of Query: 02/04/21 1237 Patient Name: Amarilis Munson Admit Date: 02/02/21 Dear Doctor, A review of the medical record indicates additional documentation may be needed. Please review below and update the documentation accordingly. Clinical Indicators: Risk Factors/Clinical Indicators/Treatments Altered mental status on admit PMH: Dementia Alert, oriented x1 Based on the above, could you clarify in the Progress Notes which, if any of the following, is the most likely etiology of the confusion/altered mental status? * Dementia - indicate type of dementia, such as Alzheimer's, senile, vascular, Lewy body, etc. * Acute delirium - indicate known or suspected etiology, such as postoperative, due to narcotics or other drugs, etc. * Baseline dementia - indicate type, such as Alzheimer's, senile, vascular, Lewy body, etc., and any associated behavioral disturbances (aggressive, combative, or violent behavior) * Acute or subacute confusional state due to (specify known or suspected etiology) * Other etiology (please specify) * Unable to determine Use of terms such as suspected, likely, concern for, or probable (associated with a specific diagnosis that is being evaluated, monitored, or treated as if it exists) are acceptable and can be coded in the inpatient setting, when documented at the time of discharge. Thank you, Carrie Liang RN Extension: [phone] Please use your independent medical judgment in providing your response. THIS QUERY IS PART OF THE PERMANENT MEDICAL RECORD Provider Response: Other Other Diagnosis: Dementia- unspecified.
[2021-02-04 16:42] LABS: Glucose, Whole Blood 137 mg/dL (60-115)
[2021-02-04] MEDS: Potassium Chloride Packet 20 MEQ PACKET PO (17:03)
[2021-02-04] MEDS: Dextrose 5 % and 0.45 % NaCl 1,000 ML 80 ML IVCONT (17:04)
[2021-02-04 20:37] LABS: Glucose, Whole Blood 205 mg/dL (60-115)
[2021-02-04] MEDS: cefTRIAXone sodium 1 GM in 0.9 % Sodium Chloride 50 ML IV (20:59)
[2021-02-04] MEDS: Atorvastatin Calcium 10 MG TABLET PO (21:08)
[2021-02-04] MEDS: QUEtiapine Fumarate 25 MG TABLET PO (21:09)
[2021-02-04] MEDS: Insulin Lispro 100 UNIT/ML 3 ML VIAL SUBCUT (21:09)
--- NOTE | 2021-02-04 21:52 | PM.PNNEP ---
Subjective Subjective Date of Service: 02/04/21 Physical Exam Vital Signs: Vital Signs: Last Vital Signs Temp 97.3 F 02/04/21 20:00 Pulse 89 02/04/21 20:00 Resp 18 02/04/21 20:00 BP 174/89 H 02/04/21 20:00 Pulse Ox 90 L 02/04/21 20:00 Oxygen Flow Rate 2 02/01/21 23:52 BMI result Body Mass Index 29.2 Const: General: cooperative Eyes: General: appearance normal, both eyes and all related structures Resp: Effort & Inspection: normal respiratory effort Cardio: Rate: regular rate Rhythm: regular rhythm GI: Palpation (GI): nontender Extrem: General: Yes normal to inspection Objective Data Labs CBC & Chem 7: 02/02/21 04:27 02/04/21 09:19 Labs: Laboratory Results - last 24 hr 02/03/21 02/04/21 02/04/21 20:12 07:24 09:19 Sodium 144 Potassium 3.5 Chloride 109 H Carbon Dioxide 24 Anion Gap 15 BUN 23 H Creatinine 0.95 Estim Creat Clear Calc 34.7 Estimated GFR 56 POC Glucose 195 H 102 Random Glucose 104 Calcium 8.9 02/04/21 02/04/21 02/04/21 11:07 16:25 20:29 Sodium Potassium Chloride Carbon Dioxide Anion Gap BUN Creatinine Estim Creat Clear Calc Estimated GFR POC Glucose 122 H 137 H 205 H Random Glucose Calcium Microbiology Microbiology Results: Microbiology 02/02/21 02:08 Blood - Venous Blood Culture - Preliminary No growth after 48 hours. 02/02/21 02:08 Blood - Venous Blood Culture - Final Coag negative Staphylococcus Procedures Date of Service Date of Service: 02/04/21 Assessment & Plan Assessment and plan (1) Acute hypoxemic respiratory failure due to COVID-19: Status: Acute (2) Hypernatremia: Status: Acute Assessment and Plan: 85-year-old female with a past medical history of hypertension, remote history of colon cancer status post resection-subsequent colostomy bag; dementia, arthritis, osteoporosis; presented to the hospital today with a chief complaint of generalized weakness.? Noted to have COVID-19 pneumonia.? Admitted for further management. XAVIER and high na which has resolved noted to have new 3 plus protienuria albumin/creat ration pending this can occur with COVID . Time Spent With Patient Time: Total time spent is greater than 50% in coordination of care (as documented) at patient's floor/unit and/or counseling patient: Progress Note: Quality Stroke Does the patient have a stroke diagnosis?: No
[2021-02-04] MEDS: Azithromycin 500 MG in 0.9 % Sodium Chloride 250 ML 125 MG IV (22:00)
[2021-02-05] VITALS (10 sets, daily range): BP systolic 121–191; BP diastolic 74–98; PULSE 64–78; RESP 18–20; TEMP 36.5–37.8; O2SAT 90–100
[2021-02-05 00:58] LABS: Creatinine Urine 31.51 mg/dL; Microalbum/Creatinine Ratio Ur 923.5 ug/mg cr; Total Protein Urine Random 54 mg/dL (<12)
--- NOTE | 2021-02-05 02:05 | PC.NURSE ---
Around 2300, pt desated to 87% on 2.5L NC. Pt's oxygen was increased until pt obtained an O2 sat of 91%. Pt on [place] NC at 11%. Respiratory notified. Pt resting comfortably. Will continue to monitor.
[2021-02-05] MEDS: Enoxaparin Sodium 40 MG/0.4 ML SYRINGE SUBCUT (03:20)
[2021-02-05] MEDS: Dextrose 5 % and 0.45 % NaCl 1,000 ML 80 ML IVCONT (03:21)
--- NOTE | 2021-02-05 07:09 | PM.PNNEP ---
Subjective Subjective Date of Service: 02/05/21 Physical Exam Vital Signs: Vital Signs: Last Vital Signs Temp 98.2 F 02/05/21 03:49 Pulse 76 02/05/21 03:49 Resp 20 02/05/21 03:49 BP 128/74 02/05/21 03:49 Pulse Ox 90 L 02/05/21 03:49 Oxygen Flow Rate 2 02/01/21 23:52 BMI result Body Mass Index 29.2 Const: General: cooperative Eyes: General: appearance normal, both eyes and all related structures Resp: Effort & Inspection: normal respiratory effort Cardio: Rate: regular rate Rhythm: regular rhythm GI: Palpation (GI): nontender Extrem: General: Yes normal to inspection Objective Data Labs CBC & Chem 7: 02/02/21 04:27 02/04/21 09:19 Labs: Laboratory Results - last 24 hr 02/04/21 02/04/21 02/04/21 07:24 09:19 11:07 Sodium 144 Potassium 3.5 Chloride 109 H Carbon Dioxide 24 Anion Gap 15 BUN 23 H Creatinine 0.95 Estim Creat Clear Calc 34.7 Estimated GFR 56 POC Glucose 102 122 H Random Glucose 104 Calcium 8.9 U Random Total Protein Urine Creatinine Urine Microalbumin Microalb/Creat Ratio 02/04/21 02/04/21 02/05/21 16:25 20:29 00:30 Sodium Potassium Chloride Carbon Dioxide Anion Gap BUN Creatinine Estim Creat Clear Calc Estimated GFR POC Glucose 137 H 205 H Random Glucose Calcium U Random Total Protein 54 H Urine Creatinine 31.51 Urine Microalbumin 291.0 Microalb/Creat Ratio 923.5 Microbiology Microbiology Results: Microbiology 02/02/21 02:08 Blood - Venous Blood Culture - Preliminary No growth after 48 hours. 02/02/21 02:08 Blood - Venous Blood Culture - Final Coag negative Staphylococcus Procedures Date of Service Date of Service: 02/05/21 Assessment & Plan Assessment and plan (1) Acute hypoxemic respiratory failure due to COVID-19: Status: Acute (2) Hypernatremia: Status: Acute Assessment and Plan: 85-year-old female with a past medical history of hypertension, remote history of colon cancer status post resection-subsequent colostomy bag; dementia, arthritis, osteoporosis; presented to the hospital today with a chief complaint of generalized weakness.? Noted to have COVID-19 pneumonia.? Admitted for further management. XAVIER and high na which has resolved noted to have new 3 plus protienuria albumin/creat ration 900 so subnephrotic will f/u this can occur with COVID .will sign off for now call for ? Time Spent With Patient Time: Total time spent is greater than 50% in coordination of care (as documented) at patient's floor/unit and/or counseling patient: Progress Note: Quality Stroke Does the patient have a stroke diagnosis?: No
[2021-02-05 07:30] LABS: Glucose, Whole Blood 124 mg/dL (60-115)
[2021-02-05 08:05] LABS: Anion Gap 14 (12-20); Blood Urea Nitrogen 22 mg/dL (9-16); Calcium 8.7 mg/dL (8.4-10.2); Carbon Dioxide 23 mmol/L (22-29); Chloride 111 mmol/L (96-108); Creatinine Clr Calc Pharmacy 38.3; Estimated Glomerular Filt Rate > 60; Glucose Random 122 mg/dL (60-115); Potassium 3.3 mmol/L (3.3-5.1); Sodium 145 mmol/L (135-145)
[2021-02-05] MEDS: dexAMETHasone sod phosphate 4 MG/ML VIAL 6 MG IVPUSH (10:02)
[2021-02-05] MEDS: Famotidine/PF 20 MG/2 ML VIAL IVPUSH ×2 (10:02→21:54)
[2021-02-05] MEDS: amLODIPine Besylate 2.5 MG TABLET 7.5 MG PO (10:03)
[2021-02-05] MEDS: Metoprolol Tartrate 12.5 MG HALFTAB PO ×2 (10:03→21:53)
[2021-02-05] MEDS: Aspirin 81 MG TAB.CHEW PO (10:03)
[2021-02-05] MEDS: 0.9 % Sodium Chloride Flush 3 ML SYRINGE IVFLUSH ×2 (10:04→17:43)
[2021-02-05 10:50] LABS: VBG Base Excess -0.8 mmol/L; VBG HCO3 22 mmol/L (22-26); VBG pCO2 31 mmHg; VBG pH 7.45 (7.32-7.43); VBG pO2 116 mmHg
[2021-02-05 10:51] LABS: Venous Blood Gas Refer to POC result
[2021-02-05 11:15] LABS: Glucose, Whole Blood 123 mg/dL (60-115)
--- NOTE | 2021-02-05 11:45 | MHC.CM.PN ---
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
--- NOTE | 2021-02-05 14:39 | HO.PM.IMPN ---
Subjective Subjective Date of Service: 02/05/21 Interval History: Acute hypoxemic respiratory failure secondary to COVID Review of Systems patient still awake eat the some of her food drink some juice as well as eat Jell-O this morning does not the answer questions Physical Exam Vital Signs: Vital Signs: Last Vital Signs Temp 97.9 F 02/05/21 11:37 Pulse 64 02/05/21 11:37 Resp 20 02/05/21 11:37 BP 147/85 H 02/05/21 11:37 Pulse Ox 100 02/05/21 11:37 Oxygen Flow Rate 2 02/01/21 23:52 BMI result Body Mass Index 29.2 General: AO X 1, no acute distress Resp:? fair air entry, slightly dimished at bases . CVS: S1,S2,RRR GI: +BS, NT, no distention Skin: No rash Neuro:? motor grossly intact Psych: appropriate affect Objective Data Active Medications Acetaminophen (Acetaminophen 325 Mg Tablet) 650 mg PO Q6H PRN PRN Reason: Pain, Mild (Pain Scale 1-3) Amlodipine Besylate (Amlodipine Besylate 2.5 Mg Tablet) 7.5 mg PO DAILY ON LICENSE OF [facility]; Protocol Last Admin: 02/05/21 10:03 Dose: 7.5 mg Documented by: WALLY Aspirin (Aspirin 81 Mg Tab.Chew) 81 mg PO DAILY ON LICENSE OF [facility] Last Admin: 02/05/21 10:03 Dose: 81 mg Documented by: WALLY Atorvastatin Calcium (Atorvastatin Calcium 10 Mg Tablet) 10 mg PO BEDTIME ON LICENSE OF [facility] Last Admin: 02/04/21 21:08 Dose: 10 mg Documented by: CHASITY Dexamethasone Sodium Phosphate (Dexamethasone Sod Phosphate 4 Mg/Ml Vial) 6 mg IVPUSH DAILY ON LICENSE OF [facility] Last Admin: 02/05/21 10:02 Dose: 6 mg Documented by: WALLY Dextrose (Dextrose 50 % 25 Gm/50 Ml Vial) 25 gm IVPUSH Q15M PRN; Protocol PRN Reason: per Hypoglycemia Standing Ord. Enoxaparin Sodium (Enoxaparin Sodium 40 Mg/0.4 Ml Syringe) 40 mg SUBCUT Q24H ON LICENSE OF [facility] Last Admin: 02/05/21 03:20 Dose: 40 mg Documented by: CHASITY Famotidine (Famotidine/Pf 20 Mg/2 Ml Vial) 20 mg IVPUSH BID ON LICENSE OF [facility] Last Admin: 02/05/21 10:02 Dose: 20 mg Documented by: WALLY Glucose (Glucose Gel 15 Gm Gel..Gram.) 15 gm PO Q15M PRN; Protocol PRN Reason: per Hypoglycemia Standing Ord. Ceftriaxone Sodium 1 gm/ (Sodium Chloride) 50 mls @ 100 mls/hr IV Q24H ON LICENSE OF [facility] Last Infusion: 02/04/21 21:39 Dose: 0 mls/hr Documented by: CHASITY Azithromycin 500 mg/ Sodium (Chloride) 250 mls @ 125 mls/hr IV Q24H ON LICENSE OF [facility] Last Infusion: 02/05/21 00:50 Dose: 0 mls/hr Documented by: CHASITY Dextrose/Sodium Chloride (D51/2ns) 1,000 mls @ 80 mls/hr IVCONT .[id number] ON LICENSE OF [facility] Last Admin: 02/05/21 03:21 Dose: 80 mls/hr Documented by: CHASITY Insulin Human Lispro (Insulin Lispro 100 Unit/Ml 3 Ml Vial) 0 unit SUBCUT QIDACHS ON LICENSE OF [facility]; Protocol Last Admin: 02/05/21 11:36 Dose: Not Given Documented by: WALLY Non-Admin Reason: No Insulin Coverage Melatonin (Melatonin 3 Mg Tablet) 6 mg PO BEDTIME PRN PRN Reason: Insomnia Metoprolol Tartrate (Metoprolol Tartrate 12.5 Mg Halftab) 12.5 mg PO BID ON LICENSE OF [facility]; Protocol Last Admin: 02/05/21 10:03 Dose: 12.5 mg Documented by: WALLY Morphine Sulfate (Morphine Sulfate 4 Mg/Ml Cartridge) 1 mg IVPUSH Q4H PRN; Protocol PRN Reason: Pain, SOB Quetiapine Fumarate (Quetiapine Fumarate 25 Mg Tablet) 25 mg PO BEDTIME ON LICENSE OF [facility] Last Admin: 02/04/21 21:09 Dose: 25 mg Documented by: CHASITY Senna (Sennosides 8.6 Mg Tablet) 17.2 mg PO BEDTIME PRN PRN Reason: Constipation Sodium Chloride (0.9 % Sodium Chloride Flush 3 Ml Syringe) 3 ml IVFLUSH QSHIFT ON LICENSE OF [facility] Last Admin: 02/05/21 10:04 Dose: 3 ml Documented by: WALLY Labs CBC & Chem 7: 02/02/21 04:27 02/05/21 07:00 Labs: Laboratory Results - last 24 hr 02/04/21 02/04/21 02/05/21 16:25 20:29 00:30 VBG pH VBG pCO2 VBG pO2 VBG HCO3 VBG O2 Saturation VBG Base Excess Anion Gap Estim Creat Clear Calc Estimated GFR POC Glucose 137 H 205 H Random Glucose Calcium U Random Total Protein 54 H Urine Creatinine 31.51 Urine Microalbumin 291.0 Microalb/Creat Ratio 923.5 02/05/21 02/05/21 02/05/21 07:00 07:26 10:45 VBG pH 7.45 H VBG pCO2 31 VBG pO2 116 VBG HCO3 22 VBG O2 Saturation 98.0 VBG Base Excess -0.8 Anion Gap 14 Estim Creat Clear Calc 38.3 Estimated GFR > 60 POC Glucose 124 H Random Glucose 122 H Calcium 8.7 U Random Total Protein Urine Creatinine Urine Microalbumin Microalb/Creat Ratio 02/05/21 11:06 VBG pH VBG pCO2 VBG pO2 VBG HCO3 VBG O2 Saturation VBG Base Excess Anion Gap Estim Creat Clear Calc Estimated GFR POC Glucose 123 H Random Glucose Calcium U Random Total Protein Urine Creatinine Urine Microalbumin Microalb/Creat Ratio Assessment and Plan (1) Acute hypoxemic respiratory failure due to COVID-19: Status: Acute (2) XAVIER (acute kidney injury): Status: Acute (3) Hypernatremia: Status: Acute Assessment and Plan: 85-year-old female with a past medical history of hypertension, remote history of colon cancer status post resection-subsequent colostomy bag; dementia, arthritis, osteoporosis; presented to the hospital today with a chief complaint of generalized weakness.? Noted to have COVID-19 pneumonia.? Admitted for further management. 1.Metabolic encephalopathy d/t dedhydration, renal failure and hypernatremia, on top of underlying dementia.? Remains confused but seems better -continue treatment of underlying issues 2. Hypoxia d/t COVID-19 pneumonia.? progressing cxr -increased Patchy bilateral lower zone airspace opacities increased. abg: ph seems fine, pco2: 31 , po2 : 31 , Po2: 116 On supplemental oxygen,steroid? COVID-19 pneumonia: No sings of bacterial infection dc Abx, ? Continue Decadron 6 mg daily.? Id consult for further recommendations.? 3.Elevated troponin: likey demand ischemia froma illness, renal failure, conservative management, not candidate for invasive study -ASA, BB, statin, hold Echo for now--won't private branch exchange installer. 4.XAVIER: Likely prerenal d/t decrease oral intake, being hydrated and follow renal function 5.Hypernatremia:?imrpoved , off fluids ? Free water 250 mL q.4 hours ?monitor electrolyte closely. 6.HTN-- off fluids BP high, adjusted amlodipine 10 mg daily. ? DVT prophylaxis:? Lovenox above d/w? patient daughter miss Tamayo:[phone]: HCP-? discussed patient overall prognosis seems poor long-term,? patient still full code.? He continue above management. Quality Stroke Does the patient have a stroke diagnosis?: No VTE Prior VTE?: No VTE Risk Level:: Medical - moderate - high VTE Device Contraindication: Treatment Not Indicated VTE Drug Contraindication: N/A - Med Ordered
[2021-02-05 16:20] LABS: Glucose, Whole Blood 135 mg/dL (60-115)
[2021-02-05 20:50] LABS: Glucose, Whole Blood 130 mg/dL (60-115)
[2021-02-05] MEDS: Atorvastatin Calcium 10 MG TABLET PO (21:53)
[2021-02-05] MEDS: QUEtiapine Fumarate 25 MG TABLET PO (21:53)
[2021-02-05] MEDS: Potassium Chloride/H20 10 MEQ/100 ML PIGGYBACK 100 MEQ IV ×2 (21:54→23:14)
[2021-02-06] VITALS (8 sets, daily range): BP systolic 116–176; BP diastolic 62–110; PULSE 61–77; RESP 18–28; TEMP 36.3–37.1; O2SAT 90–100
[2021-02-06] MEDS: cefTRIAXone sodium 1 GM in 0.9 % Sodium Chloride 50 ML IV (00:27)
[2021-02-06] MEDS: Azithromycin 500 MG in 0.9 % Sodium Chloride 250 ML 125 MG IV ×2 (01:13→22:12)
[2021-02-06] MEDS: Enoxaparin Sodium 40 MG/0.4 ML SYRINGE SUBCUT (03:27)
[2021-02-06 07:21] LABS: Glucose, Whole Blood 131 mg/dL (60-115)
--- NOTE | 2021-02-06 08:24 | HO.PM.IMPN ---
Subjective Subjective Date of Service: 02/06/21 Interval History: Acute hypoxemic respiratory failure secondary to COVID Review of Systems seems more awake Needs lot of encouragement for p.o. intake and hydration. Hypoxia seems similar to yesterday. Physical Exam Vital Signs: Vital Signs: Last Vital Signs Temp 98.6 F 02/06/21 03:43 Pulse 76 02/06/21 03:43 Resp 20 02/06/21 03:43 BP 176/97 H 02/06/21 03:43 Pulse Ox 90 L 02/06/21 03:43 Oxygen Flow Rate 2 02/01/21 23:52 BMI result Body Mass Index 29.2 General: AO X 1, no acute distress Resp:? fair air entry, slightly dimished at bases . CVS: S1,S2,RRR GI: +BS, NT, no distention Skin: No rash Neuro:? motor grossly intact Psych: appropriate affect Objective Data Active Medications Acetaminophen (Acetaminophen 325 Mg Tablet) 650 mg PO Q6H PRN PRN Reason: Pain, Mild (Pain Scale 1-3) Amlodipine Besylate (Amlodipine Besylate 10 Mg Tablet) 10 mg PO DAILY [facility]; Protocol Aspirin (Aspirin 81 Mg Tab.Chew) 81 mg PO DAILY [facility] Last Admin: 02/05/21 10:03 Dose: 81 mg Documented by: WALLY Atorvastatin Calcium (Atorvastatin Calcium 10 Mg Tablet) 10 mg PO BEDTIME [facility] Last Admin: 02/05/21 21:53 Dose: 10 mg Documented by: REYNA Dexamethasone Sodium Phosphate (Dexamethasone Sod Phosphate 4 Mg/Ml Vial) 6 mg IVPUSH DAILY [facility] Last Admin: 02/05/21 10:02 Dose: 6 mg Documented by: WALLY Dextrose (Dextrose 50 % 25 Gm/50 Ml Vial) 25 gm IVPUSH Q15M PRN; Protocol PRN Reason: per Hypoglycemia Standing Ord. Enoxaparin Sodium (Enoxaparin Sodium 40 Mg/0.4 Ml Syringe) 40 mg SUBCUT Q24H [facility] Last Admin: 02/06/21 03:27 Dose: 40 mg Documented by: REYNA Famotidine (Famotidine/Pf 20 Mg/2 Ml Vial) 20 mg IVPUSH BID [facility] Last Admin: 02/05/21 21:54 Dose: 20 mg Documented by: REYNA Glucose (Glucose Gel 15 Gm Gel..Gram.) 15 gm PO Q15M PRN; Protocol PRN Reason: per Hypoglycemia Standing Ord. Ceftriaxone Sodium 1 gm/ (Sodium Chloride) 50 mls @ 100 mls/hr IV Q24H [facility] Last Infusion: 02/06/21 02:56 Dose: 0 mls/hr Documented by: REYNA Azithromycin 500 mg/ Sodium (Chloride) 250 mls @ 125 mls/hr IV Q24H [facility] Last Infusion: 02/06/21 03:23 Dose: 0 mls/hr Documented by: REYNA Insulin Human Lispro (Insulin Lispro 100 Unit/Ml 3 Ml Vial) 0 unit SUBCUT QIDACHS [facility]; Protocol Last Admin: 02/06/21 07:21 Dose: Not Given Documented by: SHIN Non-Admin Reason: No Insulin Coverage Melatonin (Melatonin 3 Mg Tablet) 6 mg PO BEDTIME PRN PRN Reason: Insomnia Metoprolol Tartrate (Metoprolol Tartrate 12.5 Mg Halftab) 12.5 mg PO BID [facility]; Protocol Last Admin: 02/05/21 21:53 Dose: 12.5 mg Documented by: REYNA Morphine Sulfate (Morphine Sulfate 4 Mg/Ml Cartridge) 1 mg IVPUSH Q4H PRN; Protocol PRN Reason: Pain, SOB Quetiapine Fumarate (Quetiapine Fumarate 25 Mg Tablet) 25 mg PO BEDTIME [facility] Last Admin: 02/05/21 21:53 Dose: 25 mg Documented by: REYNA Senna (Sennosides 8.6 Mg Tablet) 17.2 mg PO BEDTIME PRN PRN Reason: Constipation Sodium Chloride (0.9 % Sodium Chloride Flush 3 Ml Syringe) 3 ml IVFLUSH QSHIFT [facility] Last Admin: 02/06/21 02:56 Dose: Not Given Documented by: REYNA Non-Admin Reason: IV Running Labs CBC & Chem 7: 02/06/21 08:23 02/06/21 08:23 Labs: Laboratory Results - last 24 hr 02/05/21 02/05/21 02/05/21 10:45 11:06 16:16 VBG pH 7.45 H VBG pCO2 31 VBG pO2 116 VBG HCO3 22 VBG O2 Saturation 98.0 VBG Base Excess -0.8 POC Glucose 123 H 135 H 02/05/21 02/06/21 20:39 07:15 VBG pH VBG pCO2 VBG pO2 VBG HCO3 VBG O2 Saturation VBG Base Excess POC Glucose 130 H 131 H Assessment and Plan (1) Acute hypoxemic respiratory failure due to COVID-19: Status: Acute Assessment and Plan: 85-year-old female with a past medical history of hypertension, remote history of colon cancer status post resection-subsequent colostomy bag; dementia, arthritis, osteoporosis; presented to the hospital today with a chief complaint of generalized weakness.? Noted to have COVID-19 pneumonia.? Admitted for further management. 1.Metabolic encephalopathy d/t dedhydration, renal failure and hypernatremia, on top of underlying dementia.? Remains confused but seems better -continue treatment of underlying issues 2. Hypoxia d/t COVID-19 pneumonia.? progressing cxr -increased?Patchy bilateral lower zone airspace opacities increased. abg: ph seems fine, pco2: 31 , po2 : 31 , Po2: 116 ?On supplemental oxygen,steroid? COVID-19 pneumonia: No sings of bacterial infection dc Abx, ? Continue Decadron 6 mg daily.? Id consult-Not candidate due to low oxygen needs for baricitinib Duration longer than Remdesivirs interval of helpfulness. 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 4.XAVIER: Likely prerenal d/t decrease oral intake, being hydrated and follow renal function 5.Hypernatremia:?imrpoved , off fluids ? Free water 250 mL q.4 hours ?monitor electrolyte closely. 6.HTN-- off fluids BP high, adjusted amlodipine 10 mg daily. ? DVT prophylaxis:? Lovenox above d/w? patient daughter miss hall-Gamaliel:[phone]: HCP-? discussed patient overall prognosis seems poor long-term,? patient still full code.? He continue above management. Quality Stroke Does the patient have a stroke diagnosis?: No VTE Prior VTE?: No VTE Risk Level:: Medical - moderate - high VTE Device Contraindication: Treatment Not Indicated VTE Drug Contraindication: N/A - Med Ordered
[2021-02-06 08:34] LABS: Hematocrit 43.3 % (37.0-47.0); Hemoglobin 14.8 g/dl (12.0-16.0); Mean Corpuscular HGB Conc 34.2 g/dl (31.0-35.0); Mean Corpuscular Hemoglobin 29.9 pg (27.0-33.0); Mean Corpuscular Volume 87.5 fL (80.0-98.0); Mean Platelet Volume 12.3 fL (9.4-12.3); Platelet Count 193 X10*3/uL (160-400); Red Blood Count 4.95 X10*6/uL (4.20-5.50); Red Cell Distribution Width 13.5 % (11.0-16.0); White Blood Count 11.3 X10*3/uL (4.8-10.8)
[2021-02-06 08:55] LABS: Anion Gap 14 (12-20); Blood Urea Nitrogen 22 mg/dL (9-16); Calcium 8.9 mg/dL (8.4-10.2); Carbon Dioxide 26 mmol/L (22-29); Chloride 110 mmol/L (96-108); Creatinine Clr Calc Pharmacy 39.7; Estimated Glomerular Filt Rate > 60; Glucose Random 100 mg/dL (60-115); Potassium 4.7 mmol/L (3.3-5.1); Sodium 145 mmol/L (135-145)
[2021-02-06] MEDS: 0.9 % Sodium Chloride Flush 3 ML SYRINGE IVFLUSH ×3 (09:29→19:52)
[2021-02-06] MEDS: amLODIPine Besylate 10 MG TABLET PO (09:29)
[2021-02-06] MEDS: Aspirin 81 MG TAB.CHEW PO (09:29)
[2021-02-06] MEDS: Metoprolol Tartrate 25 MG TABLET PO ×2 (09:29→19:43)
[2021-02-06] MEDS: dexAMETHasone sod phosphate 4 MG/ML VIAL 6 MG IVPUSH (09:29)
[2021-02-06] MEDS: Famotidine/PF 20 MG/2 ML VIAL IVPUSH ×2 (09:30→19:44)
[2021-02-06 11:04] LABS: Glucose, Whole Blood 134 mg/dL (60-115)
[2021-02-06] MEDS: Morphine Sulfate 4 MG/ML CARTRIDGE 1 MG IVPUSH (15:31)
[2021-02-06 16:04] LABS: Glucose, Whole Blood 177 mg/dL (60-115)
[2021-02-06] MEDS: Atorvastatin Calcium 10 MG TABLET PO (19:43)
[2021-02-06] MEDS: QUEtiapine Fumarate 25 MG TABLET PO (19:43)
[2021-02-06 20:26] LABS: Glucose, Whole Blood 147 mg/dL (60-115)
[2021-02-07] VITALS (8 sets, daily range): BP systolic 126–171; BP diastolic 60–86; PULSE 59–95; RESP 15–18; TEMP 36.2–36.9; O2SAT 92–98
[2021-02-07] MEDS: cefTRIAXone sodium 1 GM in 0.9 % Sodium Chloride 50 ML IV ×2 (00:20→22:07)
[2021-02-07 01:36] LABS: Alanine Aminotransferase 28 U/L (0-31); Albumin Level 3.5 g/dL (3.5-5.0); Alkaline Phosphatase 103 U/L (39-117); Aspartate Amino Transferase 34 U/L (5-31); Bilirubin Direct 0.2 mg/dL (0.0-0.5); Bilirubin Total 0.7 mg/dL (0.0-1.0); Total Protein 7.3 g/dL (6.5-8.0)
[2021-02-07] MEDS: Enoxaparin Sodium 40 MG/0.4 ML SYRINGE SUBCUT (03:05)
[2021-02-07 07:41] LABS: Glucose, Whole Blood 105 mg/dL (60-115)
[2021-02-07] MEDS: 0.9 % Sodium Chloride Flush 3 ML SYRINGE IVFLUSH ×3 (08:39→22:07)
[2021-02-07] MEDS: dexAMETHasone sod phosphate 4 MG/ML VIAL 6 MG IVPUSH (08:39)
[2021-02-07] MEDS: amLODIPine Besylate 10 MG TABLET PO (08:39)
[2021-02-07] MEDS: Aspirin 81 MG TAB.CHEW PO (08:39)
[2021-02-07] MEDS: Famotidine/PF 20 MG/2 ML VIAL IVPUSH ×2 (08:39→22:07)
[2021-02-07] MEDS: Metoprolol Tartrate 25 MG TABLET PO ×2 (08:39→22:09)
--- NOTE | 2021-02-07 12:14 | HO.PM.IMPN ---
Subjective Subjective Date of Service: 02/07/21 Interval History: COVID pneumonia with hypoxia.poor oral inatke Review of Systems Awake, still eats but still little otherwise seems more awake than yesterday. overnight events noted. Physical Exam Vital Signs: Vital Signs: Last Vital Signs Temp 97.3 F 02/07/21 08:00 Pulse 64 02/07/21 08:00 Resp 18 02/07/21 08:00 BP 171/80 H 02/07/21 08:00 Pulse Ox 96 02/07/21 08:00 Oxygen Flow Rate 2 02/01/21 23:52 BMI result Body Mass Index 29.2 ?General: AO X 1, no acute distress Resp:? fair air entry, slightly dimished at bases . CVS: S1,S2,RRR GI: +BS, NT, no distention Skin: No rash Neuro:? motor grossly intact Psych: appropriate affect Objective Data Active Medications Acetaminophen (Acetaminophen 325 Mg Tablet) 650 mg PO Q6H PRN PRN Reason: Pain, Mild (Pain Scale 1-3) Amlodipine Besylate (Amlodipine Besylate 10 Mg Tablet) 10 mg PO DAILY [facility]; Protocol Last Admin: 02/07/21 08:39 Dose: 10 mg Documented by: SHIN Aspirin (Aspirin 81 Mg Tab.Chew) 81 mg PO DAILY [facility] Last Admin: 02/07/21 08:39 Dose: 81 mg Documented by: SHIN Atorvastatin Calcium (Atorvastatin Calcium 10 Mg Tablet) 10 mg PO BEDTIME [facility] Last Admin: 02/06/21 19:43 Dose: 10 mg Documented by: MANJINDER Dexamethasone Sodium Phosphate (Dexamethasone Sod Phosphate 4 Mg/Ml Vial) 6 mg IVPUSH DAILY [facility] Last Admin: 02/07/21 08:39 Dose: 6 mg Documented by: SHIN Dextrose (Dextrose 50 % 25 Gm/50 Ml Vial) 25 gm IVPUSH Q15M PRN; Protocol PRN Reason: per Hypoglycemia Standing Ord. Enoxaparin Sodium (Enoxaparin Sodium 40 Mg/0.4 Ml Syringe) 40 mg SUBCUT Q24H [facility] Last Admin: 02/07/21 03:05 Dose: 40 mg Documented by: MANJINDER Famotidine (Famotidine/Pf 20 Mg/2 Ml Vial) 20 mg IVPUSH BID [facility] Last Admin: 02/07/21 08:39 Dose: 20 mg Documented by: SHIN Glucose (Glucose Gel 15 Gm Gel..Gram.) 15 gm PO Q15M PRN; Protocol PRN Reason: per Hypoglycemia Standing Ord. Ceftriaxone Sodium 1 gm/ (Sodium Chloride) 50 mls @ 100 mls/hr IV Q24H [facility] Last Infusion: 02/07/21 01:17 Dose: 0 mls/hr Documented by: MANJINDER Azithromycin 500 mg/ Sodium (Chloride) 250 mls @ 125 mls/hr IV Q24H [facility] Last Infusion: 02/07/21 00:12 Dose: 0 mls/hr Documented by: MANJINDER Insulin Human Lispro (Insulin Lispro 100 Unit/Ml 3 Ml Vial) 0 unit SUBCUT QIDACHS [facility]; Protocol Last Admin: 02/07/21 07:42 Dose: Not Given Documented by: SHIN Non-Admin Reason: No Insulin Coverage Melatonin (Melatonin 3 Mg Tablet) 6 mg PO BEDTIME PRN PRN Reason: Insomnia Metoprolol Tartrate (Metoprolol Tartrate 25 Mg Tablet) 25 mg PO BID [facility]; Protocol Last Admin: 02/07/21 08:39 Dose: 25 mg Documented by: SHIN Quetiapine Fumarate (Quetiapine Fumarate 25 Mg Tablet) 25 mg PO BEDTIME [facility] Last Admin: 02/06/21 19:43 Dose: 25 mg Documented by: MANJINDER Senna (Sennosides 8.6 Mg Tablet) 17.2 mg PO BEDTIME PRN PRN Reason: Constipation Sodium Chloride (0.9 % Sodium Chloride Flush 3 Ml Syringe) 3 ml IVFLUSH QSHIFT [facility] Last Admin: 02/07/21 08:39 Dose: 3 ml Documented by: SHIN Labs CBC & Chem 7: 02/06/21 08:23 02/06/21 08:23 Labs: Laboratory Results - last 24 hr 02/06/21 02/06/21 02/06/21 08:23 08:23 15:50 POC Glucose 177 H Total Bilirubin 0.7 Direct Bilirubin 0.2 AST 34 H ALT 28 Alkaline Phosphatase 103 Total Protein 7.3 Albumin 3.5 Procalcitonin 1.00 02/06/21 02/07/21 20:10 07:28 POC Glucose 147 H 105 Total Bilirubin Direct Bilirubin AST ALT Alkaline Phosphatase Total Protein Albumin Procalcitonin Microbiology Microbiology Results: Microbiology 12/26/21 02:08 Blood Culture - Final Blood - Venous No growth after 5 days. Assessment and Plan (1) Acute hypoxemic respiratory failure due to COVID-19: Status: Acute (2) Hypoxia: Status: Acute Assessment and Plan: 85-year-old female with a past medical history of hypertension, remote history of colon cancer status post resection-subsequent colostomy bag; dementia, arthritis, osteoporosis; presented to the hospital today with a chief complaint of generalized weakness.? Noted to have COVID-19 pneumonia.? Admitted for further management. 1.Metabolic encephalopathy d/t dedhydration, renal failure and hypernatremia, on top of underlying dementia.? Remains confused but seems better -continue treatment of underlying issues 2. Hypoxia d/t COVID-19 pneumonia.? seems comfortable on 11 liter oxygen ?On supplemental oxygen,steroid? COVID-19 pneumonia: No sings of bacterial infection dc Abx, ? Continue Decadron 6 mg daily.? Id consult-may needs for baricitinib if needs high flow Duration longer than Remdesivirs interval of helpfulness. 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 4.XAVIER: Likely prerenal d/t decrease oral intake, being hydrated and follow renal function 5.Hypernatremia:?imrpoved , off fluids ? Free water 250 mL q.4 hours ?monitor electrolyte closely. 6.HTN-- off fluids BP high, adjusted amlodipine 10 mg daily. ? DVT prophylaxis:? Lovenox above d/w? patient daughter miss hall-Gamaliel:[phone]: HCP-? discussed patient overall prognosis seems poor long-term,? patient still full code.? He continue above management. Quality Stroke Does the patient have a stroke diagnosis?: No VTE Prior VTE?: No VTE Risk Level:: Medical - moderate - high VTE Device Contraindication: Treatment Not Indicated VTE Drug Contraindication: N/A - Med Ordered
[2021-02-07 12:15] LABS: Glucose, Whole Blood 126 mg/dL (60-115)
[2021-02-07 16:35] LABS: Glucose, Whole Blood 180 mg/dL (60-115)
[2021-02-07] MEDS: Insulin Lispro 100 UNIT/ML 3 ML VIAL SUBCUT (16:43)
[2021-02-07 20:53] LABS: Glucose, Whole Blood 125 mg/dL (60-115)
[2021-02-07] MEDS: Atorvastatin Calcium 10 MG TABLET PO (22:07)
[2021-02-07] MEDS: QUEtiapine Fumarate 25 MG TABLET PO (22:07)
[2021-02-07] MEDS: Azithromycin 500 MG in 0.9 % Sodium Chloride 250 ML 125 MG IV (22:50)
[2021-02-08] VITALS (7 sets, daily range): BP systolic 137–170; BP diastolic 64–86; PULSE 55–67; RESP 18–20; TEMP 36.1–37; O2SAT 92–97
[2021-02-08] MEDS: Enoxaparin Sodium 40 MG/0.4 ML SYRINGE SUBCUT (04:01)
[2021-02-08 08:33] LABS: Glucose, Whole Blood 112 mg/dL (60-115)
[2021-02-08] MEDS: 0.9 % Sodium Chloride Flush 3 ML SYRINGE IVFLUSH ×3 (08:47→21:04)
[2021-02-08] MEDS: Famotidine/PF 20 MG/2 ML VIAL IVPUSH ×2 (08:48→21:04)
[2021-02-08] MEDS: dexAMETHasone sod phosphate 4 MG/ML VIAL 6 MG IVPUSH (08:48)
[2021-02-08] MEDS: Aspirin 81 MG TAB.CHEW PO (08:49)
[2021-02-08] MEDS: amLODIPine Besylate 10 MG TABLET PO (08:49)
[2021-02-08] MEDS: Metoprolol Tartrate 25 MG TABLET PO ×2 (08:49→21:03)
[2021-02-08 11:47] LABS: Glucose, Whole Blood 103 mg/dL (60-115)
--- NOTE | 2021-02-08 12:15 | P.PNIM_ITS ---
Subjective Subjective Date of Service: 02/08/21 Interval History: COVID pneumonia with hypoxia.poor oral inatke Review of Systems COVID pneumonia with hypoxia. eating better than before encourgaed for hydration Physical Exam Vital Signs: Vital Signs: Last Vital Signs Temp 98.3 F 02/08/21 11:56 Pulse 55 02/08/21 11:56 Resp 20 02/08/21 11:56 BP 137/65 02/08/21 11:56 Pulse Ox 97 02/08/21 11:56 Oxygen Flow Rate 2 02/01/21 23:52 BMI result Body Mass Index 29.2 General: AO X 1, no acute distress Resp:? fair air entry, slightly dimished at bases . CVS: S1,S2,RRR GI: +BS, NT, no distention Skin: No rash Neuro:? motor grossly intact Psych: appropriate affect Objective Data Active Medications Acetaminophen (Acetaminophen 325 Mg Tablet) 650 mg PO Q6H PRN PRN Reason: Pain, Mild (Pain Scale 1-3) Amlodipine Besylate (Amlodipine Besylate 10 Mg Tablet) 10 mg PO DAILY [facility]; Protocol Last Admin: 02/08/21 08:49 Dose: 10 mg Documented by: RONNY Aspirin (Aspirin 81 Mg Tab.Chew) 81 mg PO DAILY [facility] Last Admin: 02/08/21 08:49 Dose: 81 mg Documented by: RONNY Atorvastatin Calcium (Atorvastatin Calcium 10 Mg Tablet) 10 mg PO BEDTIME [facility] Last Admin: 02/07/21 22:07 Dose: 10 mg Documented by: TANIA Dexamethasone Sodium Phosphate (Dexamethasone Sod Phosphate 4 Mg/Ml Vial) 6 mg IVPUSH DAILY [facility] Last Admin: 02/08/21 08:48 Dose: 6 mg Documented by: RONNY Dextrose (Dextrose 50 % 25 Gm/50 Ml Vial) 25 gm IVPUSH Q15M PRN; Protocol PRN Reason: per Hypoglycemia Standing Ord. Enoxaparin Sodium (Enoxaparin Sodium 40 Mg/0.4 Ml Syringe) 40 mg SUBCUT Q24H [facility] Last Admin: 02/08/21 04:01 Dose: 40 mg Documented by: TANIA Famotidine (Famotidine/Pf 20 Mg/2 Ml Vial) 20 mg IVPUSH BID [facility] Last Admin: 02/08/21 08:48 Dose: 20 mg Documented by: RONNY Glucose (Glucose Gel 15 Gm Gel..Gram.) 15 gm PO Q15M PRN; Protocol PRN Reason: per Hypoglycemia Standing Ord. Ceftriaxone Sodium 1 gm/ (Sodium Chloride) 50 mls @ 100 mls/hr IV Q24H [facility] Last Infusion: 02/07/21 22:52 Dose: 0 mls/hr Documented by: TANIA Azithromycin 500 mg/ Sodium (Chloride) 250 mls @ 125 mls/hr IV Q24H [facility] Last Infusion: 02/08/21 01:40 Dose: 0 mls/hr Documented by: TANIA Insulin Human Lispro (Insulin Lispro 100 Unit/Ml 3 Ml Vial) 0 unit SUBCUT QIDACHS [facility]; Protocol Last Admin: 02/08/21 11:57 Dose: Not Given Documented by: ORNNY Non-Admin Reason: No Insulin Coverage Melatonin (Melatonin 3 Mg Tablet) 6 mg PO BEDTIME PRN PRN Reason: Insomnia Metoprolol Tartrate (Metoprolol Tartrate 25 Mg Tablet) 25 mg PO BID [facility]; Protocol Last Admin: 02/08/21 08:49 Dose: 25 mg Documented by: RONNY Quetiapine Fumarate (Quetiapine Fumarate 25 Mg Tablet) 25 mg PO BEDTIME [facility] Last Admin: 02/07/21 22:07 Dose: 25 mg Documented by: TANIA Senna (Sennosides 8.6 Mg Tablet) 17.2 mg PO BEDTIME PRN PRN Reason: Constipation Sodium Chloride (0.9 % Sodium Chloride Flush 3 Ml Syringe) 3 ml IVFLUSH QSHIFT [facility] Last Admin: 02/08/21 08:47 Dose: 3 ml Documented by: RONNY Labs CBC & Chem 7: 02/06/21 08:23 02/06/21 08:23 Labs: Laboratory Results - last 24 hr 02/07/21 02/07/21 02/07/21 12:05 16:23 20:45 POC Glucose 126 H 180 H 125 H 02/08/21 02/08/21 07:21 11:40 POC Glucose 112 103 Assessment and Plan (1) Acute hypoxemic respiratory failure due to COVID-19: Status: Acute (2) Hypoxia: Status: Acute Assessment and Plan: 85-year-old female with a past medical history of hypertension, remote history of colon cancer status post resection-subsequent colostomy bag; dementia, arthritis, osteoporosis; presented to the hospital today with a chief complaint of generalized weakness.? Noted to have COVID-19 pneumonia.? Admitted for further management. 1.Metabolic encephalopathy d/t dedhydration, renal failure and hypernatremia, on top of underlying dementia.? Remains confused but seems better -continue treatment of underlying issues 2. Hypoxia d/t COVID-19 pneumonia.? oxygen demand slowly improving , now on 4 liters ?On supplemental oxygen,steroid? COVID-19 pneumonia: No sings of bacterial infection dc Abx, ? Continue Decadron 6 mg daily.? Id consult-may? needs for baricitinib if needs high flow Duration longer than Remdesivirs interval of helpfulness. 3.Elevated troponin: likey demand ischemia froma illness, renal failure, conse rvative management, not candidate for invasive study -ASA, BB, statin, hold Echo for now--won't change advisor. 4.XAVIER: Likely prerenal d/t decrease oral intake, being hydrated and follow renal function 5.Hypernatremia:?imrpoved , off fluids ? Free water 250 mL q.4 hours ?monitor electrolyte closely. 6.HTN-- off fluids BP high, adjusted amlodipine 10 mg daily. ? DVT prophylaxis:? Lovenox above d/w? patient daughter miss hall-Gamaliel:[phone]: HCP-? discussed patient overall prognosis seems poor long-term,? patient still full code.? He continue above management. Quality Stroke Does the patient have a stroke diagnosis?: No VTE Prior VTE?: No VTE Risk Level:: Medical - moderate - high VTE Device Contraindication: Treatment Not Indicated VTE Drug Contraindication: N/A - Med Ordered
[2021-02-08 16:37] LABS: Glucose, Whole Blood 174 mg/dL (60-115)
[2021-02-08] MEDS: Insulin Lispro 100 UNIT/ML 3 ML VIAL SUBCUT ×2 (17:29→21:04)
--- NOTE | 2021-02-08 19:57 | PC.NURSE ---
Pt ostomy and colostomy bag to LLQ. Ostomy pink, healthy and draining loose brown stool. LLQ has round protrusion noted in AM assessment. No rebound tenderness, active bowel sounds. MD notified; will monitor size of LLQ and stool output.
[2021-02-08 20:43] LABS: Glucose, Whole Blood 188 mg/dL (60-115)
[2021-02-08] MEDS: Atorvastatin Calcium 10 MG TABLET PO (21:03)
[2021-02-08] MEDS: QUEtiapine Fumarate 25 MG TABLET PO (21:03)
[2021-02-08] MEDS: cefTRIAXone sodium 1 GM in 0.9 % Sodium Chloride 50 ML IV (22:00)
[2021-02-08] MEDS: Azithromycin 500 MG in 0.9 % Sodium Chloride 250 ML 125 MG IV (23:00)
[2021-02-09] VITALS (7 sets, daily range): BP systolic 122–145; BP diastolic 58–89; PULSE 50–66; RESP 18–24; TEMP 36.1–37.1; O2SAT 94–100
[2021-02-09] MEDS: Enoxaparin Sodium 40 MG/0.4 ML SYRINGE SUBCUT (03:19)
[2021-02-09 07:50] LABS: Glucose, Whole Blood 99 mg/dL (60-115)
[2021-02-09] MEDS: dexAMETHasone sod phosphate 4 MG/ML VIAL 6 MG IVPUSH (08:06)
[2021-02-09] MEDS: Famotidine/PF 20 MG/2 ML VIAL IVPUSH ×2 (08:06→21:10)
[2021-02-09] MEDS: 0.9 % Sodium Chloride Flush 3 ML SYRINGE IVFLUSH ×3 (08:06→21:11)
[2021-02-09] MEDS: Aspirin 81 MG TAB.CHEW PO (08:07)
[2021-02-09 11:18] LABS: Glucose, Whole Blood 103 mg/dL (60-115)
--- NOTE | 2021-02-09 11:20 | HO.PM.IMPN ---
Subjective Subjective Date of Service: 02/09/21 Interval History: Acute hypoxemic respiratory failure secondary to COVID, poor oral intake. Review of Systems Oral intake slowly improving, still on 5-6 sitter oxygen slowly trending down Seems more awake today Physical Exam Vital Signs: Vital Signs: Last Vital Signs Temp 97.6 F 02/09/21 07:37 Pulse 52 02/09/21 07:37 Resp 20 02/09/21 07:37 BP 126/58 L 02/09/21 07:37 Pulse Ox 99 02/09/21 07:37 Oxygen Flow Rate 2 02/01/21 23:52 BMI result Body Mass Index 29.2 General: AO X 1, no acute distress Resp:? fair air entry, slightly dimished at bases . CVS: S1,S2,RRR GI: +BS, NT, no distention, colostomy area -clean , no dischrage or erythema , no discomfort Skin: No rash Neuro:? motor grossly intact Psych: appropriate affect Objective Data Active Medications Acetaminophen (Acetaminophen 325 Mg Tablet) 650 mg PO Q6H PRN PRN Reason: Pain, Mild (Pain Scale 1-3) Amlodipine Besylate (Amlodipine Besylate 10 Mg Tablet) 10 mg PO DAILY [facility]; Protocol Last Admin: 02/09/21 07:56 Dose: Not Given Documented by: ALLY Non-Admin Reason: low heart rate/bp Aspirin (Aspirin 81 Mg Tab.Chew) 81 mg PO DAILY [facility] Last Admin: 02/09/21 08:07 Dose: 81 mg Documented by: ALLY Atorvastatin Calcium (Atorvastatin Calcium 10 Mg Tablet) 10 mg PO BEDTIME [facility] Last Admin: 02/08/21 21:03 Dose: 10 mg Documented by: [facility] Dexamethasone Sodium Phosphate (Dexamethasone Sod Phosphate 4 Mg/Ml Vial) 6 mg IVPUSH DAILY [facility] Last Admin: 02/09/21 08:06 Dose: 6 mg Documented by: ALLY Dextrose (Dextrose 50 % 25 Gm/50 Ml Vial) 25 gm IVPUSH Q15M PRN; Protocol PRN Reason: per Hypoglycemia Standing Ord. Enoxaparin Sodium (Enoxaparin Sodium 40 Mg/0.4 Ml Syringe) 40 mg SUBCUT Q24H [facility] Last Admin: 02/09/21 03:19 Dose: 40 mg Documented by: [facility] Famotidine (Famotidine/Pf 20 Mg/2 Ml Vial) 20 mg IVPUSH BID [facility] Last Admin: 02/09/21 08:06 Dose: 20 mg Documented by: ALLY Glucose (Glucose Gel 15 Gm Gel..Gram.) 15 gm PO Q15M PRN; Protocol PRN Reason: per Hypoglycemia Standing Ord. Ceftriaxone Sodium 1 gm/ (Sodium Chloride) 50 mls @ 100 mls/hr IV Q24H [facility] Last Infusion: 02/08/21 23:03 Dose: 0 mls/hr Documented by: [facility] Azithromycin 500 mg/ Sodium (Chloride) 250 mls @ 125 mls/hr IV Q24H [facility] Last Infusion: 02/09/21 01:05 Dose: 0 mls/hr Documented by: [facility] Insulin Human Lispro (Insulin Lispro 100 Unit/Ml 3 Ml Vial) 0 unit SUBCUT QIDACHS [facility]; Protocol Last Admin: 02/09/21 11:19 Dose: Not Given Documented by: ALLY Non-Admin Reason: No Insulin Coverage Melatonin (Melatonin 3 Mg Tablet) 6 mg PO BEDTIME PRN PRN Reason: Insomnia Metoprolol Tartrate (Metoprolol Tartrate 25 Mg Tablet) 25 mg PO BID [facility]; Protocol Last Admin: 02/09/21 07:56 Dose: Not Given Documented by: ALLY Non-Admin Reason: Decreased Heart Rate Quetiapine Fumarate (Quetiapine Fumarate 25 Mg Tablet) 25 mg PO BEDTIME [facility] Last Admin: 02/08/21 21:03 Dose: 25 mg Documented by: [facility] Senna (Sennosides 8.6 Mg Tablet) 17.2 mg PO BEDTIME PRN PRN Reason: Constipation Sodium Chloride (0.9 % Sodium Chloride Flush 3 Ml Syringe) 3 ml IVFLUSH QSHIFT [facility] Last Admin: 02/09/21 08:06 Dose: 3 ml Documented by: ALLY Labs CBC & Chem 7: 02/06/21 08:23 02/06/21 08:23 Labs: Laboratory Results - last 24 hr 02/08/21 02/08/21 02/08/21 11:40 16:23 20:31 POC Glucose 103 174 H 188 H 02/09/21 02/09/21 07:23 11:13 POC Glucose 99 103 Assessment and Plan (1) Acute hypoxemic respiratory failure due to COVID-19: Status: Acute Assessment and Plan: 85-year-old female with a past medical history of hypertension, remote history of colon cancer status post resection-subsequent colostomy bag; dementia, arthritis, osteoporosis; presented to the hospital today with a chief complaint of generalized weakness.? Noted to have COVID-19 pneumonia.? Admitted for further management. 1.Metabolic encephalopathy d/t dedhydration, renal failure and hypernatremia, on top of underlying dementia.? Remains confused but seems better -continue treatment of underlying issues 2. Hypoxia d/t COVID-19 pneumonia.? oxygen demand slowly improving , now on 5 liters ?On supplemental oxygen,steroid? COVID-19 pneumonia: No sings of bacterial infection dc Abx, ? Continue Decadron 6 mg daily.? Id consult-may? needs for baricitinib if needs high flow Duration longer than Remdesivirs interval of helpfulness. please taper oxygen 3.Elevated troponin: likey demand ischemia froma illness, renal failure, conservative management, not candidate for invasive study -ASA, BB, statin, hold Echo for now--won't change management coordinator. 4.XAVIER: Likely prerenal d/t decrease oral intake, being hydrated and follow renal function 5.Hypernatremia:?imrpoved , off fluids ? Free water 250 mL q.4 hours ?monitor electrolyte closely. 6.HTN-- off fluids BP high, adjusted amlodipine 10 mg daily. ? DVT prophylaxis:? Lovenox above d/w? patient daughter miss hall-Gamaliel:[phone]: HCP-? discussed patient overall prognosis seems poor long-term,? patient still full code.? He continue above management. Quality Stroke Does the patient have a stroke diagnosis?: No VTE Prior VTE?: No VTE Risk Level:: Medical - moderate - high VTE Device Contraindication: Treatment Not Indicated VTE Drug Contraindication: N/A - Med Ordered
[2021-02-09 16:07] LABS: Glucose, Whole Blood 140 mg/dL (60-115)
[2021-02-09 20:05] LABS: Glucose, Whole Blood 148 mg/dL (60-115)
[2021-02-09] MEDS: Atorvastatin Calcium 10 MG TABLET PO (21:10)
[2021-02-09] MEDS: QUEtiapine Fumarate 25 MG TABLET PO (21:11)
[2021-02-09] MEDS: cefTRIAXone sodium 1 GM in 0.9 % Sodium Chloride 50 ML IV (21:11)
[2021-02-10] VITALS (7 sets, daily range): BP systolic 122–186; BP diastolic 60–81; PULSE 50–73; RESP 16–19; TEMP 36.4–37.1; O2SAT 93–96
[2021-02-10] MEDS: Enoxaparin Sodium 40 MG/0.4 ML SYRINGE SUBCUT (02:06)
[2021-02-10 07:32] LABS: Glucose, Whole Blood 95 mg/dL (60-115)
[2021-02-10] MEDS: 0.9 % Sodium Chloride Flush 3 ML SYRINGE IVFLUSH ×2 (07:59→15:26)
[2021-02-10] MEDS: amLODIPine Besylate 10 MG TABLET PO (08:02)
[2021-02-10] MEDS: dexAMETHasone sod phosphate 4 MG/ML VIAL 6 MG IVPUSH (08:03)
[2021-02-10] MEDS: Aspirin 81 MG TAB.CHEW PO (08:03)
[2021-02-10 11:28] LABS: Glucose, Whole Blood 174 mg/dL (60-115)
[2021-02-10] MEDS: Insulin Lispro 100 UNIT/ML 3 ML VIAL SUBCUT (11:33)
--- NOTE | 2021-02-10 13:12 | HO.PM.IMPN ---
Subjective Subjective Date of Service: 02/10/21 Interval History: COVID , poor oral intake Review of Systems Eating better than yesterday, of oxygen Physical Exam Vital Signs: Vital Signs: Last Vital Signs Temp 97.6 F 02/10/21 11:20 Pulse 73 02/10/21 11:20 Resp 18 02/10/21 11:20 BP 130/60 02/10/21 11:20 Pulse Ox 96 02/10/21 11:20 Oxygen Flow Rate 2 02/01/21 23:52 BMI result Body Mass Index 29.2 General: AO X 1, no acute distress Resp:? fair air entry, slightly dimished at bases . CVS: S1,S2,RRR GI: +BS, NT, no distention, colostomy area -clean , no dischrage or erythema , no discomfort Skin: No rash Neuro:? motor grossly intact Psych: appropriate affect Objective Data Active Medications Acetaminophen (Acetaminophen 325 Mg Tablet) 650 mg PO Q6H PRN PRN Reason: Pain, Mild (Pain Scale 1-3) Aspirin (Aspirin 81 Mg Tab.Chew) 81 mg PO DAILY [facility] Last Admin: 02/10/21 08:03 Dose: 81 mg Documented by: ARPIT Atorvastatin Calcium (Atorvastatin Calcium 10 Mg Tablet) 10 mg PO BEDTIME [facility] Last Admin: 02/09/21 21:10 Dose: 10 mg Documented by: MADELAINE Dexamethasone Sodium Phosphate (Dexamethasone Sod Phosphate 4 Mg/Ml Vial) 6 mg IVPUSH DAILY [facility] Last Admin: 02/10/21 08:03 Dose: 6 mg Documented by: ARPIT Dextrose (Dextrose 50 % 25 Gm/50 Ml Vial) 25 gm IVPUSH Q15M PRN; Protocol PRN Reason: per Hypoglycemia Standing Ord. Enoxaparin Sodium (Enoxaparin Sodium 40 Mg/0.4 Ml Syringe) 40 mg SUBCUT Q24H [facility] Last Admin: 02/10/21 02:06 Dose: 40 mg Documented by: MADELAINE Famotidine (Famotidine/Pf 20 Mg/2 Ml Vial) 20 mg IVPUSH BID [facility] Last Admin: 02/10/21 08:03 Dose: Not Given Documented by: ARPIT Non-Admin Reason: will suggest to change to po today Glucose (Glucose Gel 15 Gm Gel..Gram.) 15 gm PO Q15M PRN; Protocol PRN Reason: per Hypoglycemia Standing Ord. Insulin Human Lispro (Insulin Lispro 100 Unit/Ml 3 Ml Vial) 0 unit SUBCUT QIDACHS [facility]; Protocol Last Admin: 02/10/21 11:33 Dose: 2 unit Documented by: ARPIT Melatonin (Melatonin 3 Mg Tablet) 6 mg PO BEDTIME PRN PRN Reason: Insomnia Metoprolol Tartrate (Metoprolol Tartrate 25 Mg Tablet) 25 mg PO BID [facility]; Protocol Last Admin: 02/10/21 08:04 Dose: Not Given Documented by: ARPIT Non-Admin Reason: HR 50 Nifedipine (Nifedipine Er 30 Mg Tab.Er.24) 60 mg PO DAILY [facility]; Protocol Quetiapine Fumarate (Quetiapine Fumarate 25 Mg Tablet) 25 mg PO BEDTIME [facility] Last Admin: 02/09/21 21:11 Dose: 25 mg Documented by: CHANELLEUMOC Senna (Sennosides 8.6 Mg Tablet) 17.2 mg PO BEDTIME PRN PRN Reason: Constipation Sodium Chloride (0.9 % Sodium Chloride Flush 3 Ml Syringe) 3 ml IVFLUSH QSHIFT [facility] Last Admin: 02/10/21 07:59 Dose: 3 ml Documented by: ARPIT Labs CBC & Chem 7: 02/06/21 08:23 02/06/21 08:23 Labs: Laboratory Results - last 24 hr 02/09/21 02/09/21 02/10/21 15:44 19:50 07:24 POC Glucose 140 H 148 H 95 02/10/21 11:20 POC Glucose 174 H Assessment and Plan Assessment and Plan: 85-year-old female with a past medical history of hypertension, remote history of colon cancer status post resection-subsequent colostomy bag; dementia, arthritis, osteoporosis; presented to the hospital today with a chief complaint of generalized weakness.? Noted to have COVID-19 pneumonia.? Admitted for further management. 1.Metabolic encephalopathy d/t dedhydration, renal failure and hypernatremia, on top of underlying dementia.? Remains confused but seems better -continue treatment of underlying issues 2. Hypoxia d/t COVID-19 pneumonia.? oxygen demand slowly improving , now on 5 liters ?On supplemental oxygen,steroid? COVID-19 pneumonia: No sings of bacterial infection dc Abx, ? Continue Decadron 6 mg daily.? Id consult-may? needs for baricitinib if needs high flow Duration longer than Remdesivirs interval of helpfulness. Of oxygen , saturations fine. 3.Elevated troponin: likey demand ischemia froma illness, renal failure, conservative management, not candidate for invasive study -ASA, BB, statin, hold Echo for now--won't change control specialist. 4.XAVIER: Likely prerenal d/t decrease oral intake, being hydrated and follow renal function 5.Hypernatremia:?imrpoved , off fluids ? Free water 250 mL q.4 hours ?monitor electrolyte closely. 6.HTN--blood pressure fluctuating will change amlodipine to nifedipine 60 mg, continue metoprolol. ? DVT prophylaxis:? Lovenox above d/w? patient daughter miss hall-Gamaliel:[phone]: HCP-? discussed patient overall prognosis seems poor long-term,? patient still full code.? He continue above management. Will plan for rehab Quality Stroke Does the patient have a stroke diagnosis?: No VTE Prior VTE?: No VTE Risk Level:: Medical - moderate - high VTE Device Contraindication: Treatment Not Indicated VTE Drug Contraindication: N/A - Med Ordered
[2021-02-10 16:27] LABS: Glucose, Whole Blood 124 mg/dL (60-115)
--- NOTE | 2021-02-10 16:35 | PM.DS ---
DS: Providers Provider Date of Service: 02/10/21 Date of admission: 02/02/21 02:12 Date of discharge: 02/10/21 Primary care physician: Maria Shipley MD Consults: 02/02/21 02:10 Consult to Infectious Diseases Routine Consulting Provider: Tram Wong Reason for consultation: covid pna Consult to Nephrology Routine Consulting Provider: Carlos Quintana Reason for consultation: hypernatremia 02/04/21 08:58 Consult to Infectious Diseases Routine Consulting Provider: Tram Wong Reason for consultation: Acute hypoxemic respiratory failure secondary to COVID Has provider been notified: No DS: Diagnosis Discharge Diagnosis (1) Acute hypoxemic respiratory failure due to COVID-19: Status: Acute DS: Summary Hospital Course Hospital Course: 85-year-old female with a past medical history of hypertension, remote history of colon cancer status post resection-subsequent colostomy bag; dementia, arthritis, osteoporosis; presented to the hospital today with a chief complaint of generalized weakness.? Most of the history obtained from the patient's daughter; reported that over the past 2-3 days she has been not feeling well, generally weak, not eating and drinking; today noted to be more confused and brought into the hospital for further evaluation.? Denies patient complaining of any chest pain palpitations lightheadedness or dizziness.? Denies any numbness tingling or focal weakness.? Review of all other systems is negative except mentioned above ER course: Per ER team patient on presentation noted to be saturating 89% on room air; placed on supplemental oxygen; COVID-19 came back positive; chest x-ray showed patchy infiltrates consistent COVID-19; Also noted to have hyponatremia to 155, XAVIER to 1.7; given IV fluids.? Admitted to the hospital for further management. hospital course: patient admitted for hypoxia due to COVID pneumonia, also metabolic encephalopathy secondary to dehydration, hypernatremia and XAVIER- treated with dexamethasone, oxygen support, hydration- hyponatremia, a KI and metabolic encephalopathies seems to be improving now seems near Mental status her baseline as per family. patient needs lot of encouragement for eating and po hydration. in addition patient had elevated troponin: Conservatively treated aspirin, statin, beta-luli. Above was discussed with the family due to poor oral intake and advance dementia and multiple comorbidities - patient overall prognosis long-term seems poor. PT recommended rehab but family wanted to take home with VNA. further management outpatient as per PCP. Above management discussed with the patient's daughter in detail length her daughter( and her daughter's boyfriend Mr Kate) understand and in agreement with the above plan, time spent 50 minutes and 50% time spent on counseling. Significant findings: As above. Procedures performed: None. Treatment and response: As above. Complications: None. Time Spent with Patient Time attestation: Total time spent providing and/or coordinating discharge services: Discharge coordination time: Greater than 30 minutes Quality: Stroke Does the patient have a stroke diagnosis?: No Physical Exam Vital Signs: Vital Signs: Last Vital Signs Temp 98 F 02/10/21 15:23 Pulse 70 02/10/21 15:23 Resp 16 02/10/21 15:23 BP 122/60 02/10/21 15:23 Pulse Ox 95 02/10/21 15:23 Oxygen Flow Rate 2 02/01/21 23:52 BMI result Body Mass Index 29.2 ? General: AO X 1, no acute distress Resp:? fair air entry, slightly dimished at bases . CVS: S1,S2,RRR GI: +BS, NT, no distention, colostomy area -clean , no dischrage or erythema , no discomfort Skin: No rash Neuro:? motor grossly intact Psych: appropriate affect ? ? DS: Data Data Completed and Pending Labs on day of discharge: Laboratory Results - last 24 hr 02/09/21 02/10/21 02/10/21 19:50 07:24 11:20 POC Glucose 148 H 95 174 H 02/10/21 16:15 POC Glucose 124 H Laboratory Results - last 24 hr ? 02/05/21 02/05/21 02/05/21 ? 10:45 11:06 16:16 VBG pH ?7.45 H ? ? VBG pCO2 ?31 ? ? VBG pO2 ?116 ? ? VBG HCO3 ?22 ? ? VBG O2 Saturation ?98.0 ? ? VBG Base Excess ?-0.8 ? ? POC Glucose ? ?123 H ?135 H ? 02/05/21 02/06/21 ? 20:39 07:15 VBG pH ? ? VBG pCO2 ? ? VBG pO2 ? ? VBG HCO3 ? ? VBG O2 Saturation ? ? VBG Base Excess ? ? POC Glucose ?130 H ?131 H Additional Comments Additional comments: ?XR/XR chest 1V IMPRESSION: Patchy bilateral lower zone airspace opacities increased from prior study 02/02/2021. CT/CT abdomen pelvis wo con IMPRESSION: No acute finding in the abdomen or pelvis. No hydronephrosis or nephrolithiasis. ? Osteopenia. Chronic changes of the spine with prominent Schmorl's nodes. No acute abnormality of the spine. Multilevel facet arthropathy. ? 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 ? Chronic bladder wall thickening. ? Discharge Plan Discharge Patient Disposition: Home Health Service Discharge Diagnosis: Hypoxia secondary to COVID pneumonia , metabolic encephalopathy,elevated troponins,xavier,hypernatremia Referrals: Lynn MARTINEZ [Outside] - 1 Week Maria Dutton MD [Primary Care Provider] - 1 Week Discharge Medications: New aspirin 81 mg Tablet,Chewable 81 mg PO DAILY Qty: 30 RF: 0 metoprolol tartrate 25 mg Tablet 12.5 mg PO BID Qty: 30 RF: 0 atorvastatin 10 mg Tablet 10 mg PO BEDTIME Qty: 30 RF: 0 nifedipine 30 mg Tablet Extended Release 24hr 60 mg PO DAILY Qty: 30 RF: 0 dexamethasone 6 mg tablet 6 mg PO DAILY Qty: 1 RF: 0 omeprazole 20 mg capsule,delayed release(DR/EC) 20 mg PO DAILY Qty: 30 RF: 0 Continued quetiapine 25 mg tablet 1 tab PO BEDTIME RF: 0 acetaminophen [Pain Relief (acetaminophen)] 650 mg tablet extended release 2 tab PO Q12H PRN (Reason: Pain) RF: 0 Discontinued amlodipine 5 mg tablet 1 tab PO DAILY RF: 0 Discharge Orders: Discharge Order (Routine); Ordered 02/10/21 Ordered By: Claudia Whyte Diet: advance to usual diet Activity on Discharge: As tolerated Stand Alone Forms: Patient Portal Discharge page Care Plan Goals: patient admitted for hypoxia due to COVID pneumonia, also metabolic encephalopathy secondary to dehydration, hypernatremia and XAVIER- treated with dexamethasone, oxygen support, hydration- hyponatremia, a KI and metabolic encephalopathies seems to be improving now seems near Mental status her baseline. patient needs lot of encouragement for eating and po hydration. in addition patient had elevated troponin: Conservatively treated aspirin, statin, beta-luli. Above was discussed with the family due to poor oral intake and advance dementia and multiple comorbidities - patient overall prognosis long-term seems poor. PT recommended rehab but family wanted to take home with VNA. further management outpatient as per PCP. Health Concerns: as above. Plan of Treatment: as above. Assessment: as above.
--- NOTE | 2021-02-10 16:50 | W.MHC.F2F ---
Service Date Service Date: 02/10/21 Encounter Date of encounter: 02/10/21 Encounter: COVID, Adam, hyponatremia, elevated troponin Reasons for Services Signs and symptoms assessed: poor oral intake, COVID infection. Reason for residential: medication management, medication treatment and teach disease management Homebound: Leaving the home is medically contraindicated at this time without the asist of a device and/or another person due th the listed conditions above and below. Homebound supporting statement: patient is generalized post hospitalization ,multiple comorbidities, needs help going to appointment also. Certification: Based on the above findings, I certify that this patient is confined to the home and needs intermittent residential care, physical therapy and/or speech therapy, or continues to need occupational therapy. The patient is under my care, and I have initiated the establishment of the plan of care. The patient will be followed by a physician who will periodically review the plan of care.
== END 2021-02-10 17:38 | disposition home health service (06) | DRG 177 ==
LOC: HO.ED 02-02 00:27 → HO.EDOVER 02-02 02:17 → HO.IMC 02-03 16:17
PROVIDERS: Internal Medicine; Internal Medicine Nephrology; Admitting Provider Hospitalist; Emergency Provider Internal Medicine; PCP Internal Medicine; Visit Provider Internal Medicine
DX: U07.1 COVID-19 (principal); J96.01 Acute respiratory failure with hypoxia; J12.82 Pneumonia due to coronavirus disease 2019; G93.41 Metabolic encephalopathy; I21.A1 Myocardial infarction type 2; J15.9 Unspecified bacterial pneumonia; N17.9 Acute kidney failure, unspecified; E87.0 Hyperosmolality and hypernatremia; E86.0 Dehydration; Z90.5 Acquired absence of kidney; I25.10 Atherosclerotic heart disease of native coronary artery without angina pectoris; F03.90 Unspecified dementia, unspecified severity, without behavioral disturbance, psychotic disturbance, mood disturbance, and anxiety; Z93.3 Colostomy status; Z85.038 Personal history of other malignant neoplasm of large intestine; Z79.82 Long term (current) use of aspirin; Z79.899 Other long term (current) drug therapy
CPT/HCPCS: 36415; 71045; 80048; 80051; 80053; 80076; 81001; 82043; 82803; 82947; 83036; 83605; 84145; 84156; 84484; 85025; 85027; 87040; 87147; 87205; 87635; 93005; 96361; 96365; 96367; 96375; 97162; 99285; J0456; J0696; J1100; J1650; J2270